=== PATIENT | male | born 1955 | race Caucasian/White ===

== ENCOUNTER 2019-11-21 12:50 | Outpatient (CLI) | payer OTHER, SELFPAY ==
--- NOTE | 2019-11-21 | MR_ITS ---
WS: [id number] MRI LEFT KNEE NONCONTRAST TECHNIQUE: Axial PD, coronal PD fat sat, coronal PD, sagittal PD, and sagittal PD fat-sat images obta ined. CLINICAL INFORMATION: WORSENING LEFT KNEE PAIN COMPARISON: None. FINDINGS: Distal quadriceps and patella tendons are intact. Small moderate joint effusion. Prepatellar and infr apatellar soft tissue edema. Mucoid degeneration ACL which appears intact. Posterior cruciate ligamen t appears intact. Lobulated synovial or meniscal cyst along the intercondylar notch measuring 1.9 x 2 .2 x 1.9 CM. This extends anteriorly to abut Hoffa's fat pad and posteriorly to abut the anterior hor n lateral meniscus. Chronic intrasubstance signal abnormality involving the medial meniscus with chronic thinning. Extens tee complex horizontal tear involving the lateral meniscus involving the anterior and posterior horns extending to the free edge. Horizontal tear extends to the articular surface anteriorly and posterio rly. Hypertrophic spurring along the joint line. Mild chondromalacia patella. Hypertrophic patella. Advanced chondromalacia involving the medial and l ateral joint compartments with joint space narrowing. Cystic degenerative change along the intercondy lar notch and tibial spines. Tiny amount of edema in the tibial plateau. MR/MR knee LT wo con* [id number] IMPRESSION: 1. Advanced degenerative narrowing medial and lateral joint compartments with chondromalacia. Small amount of edema in the underlying tibial plateau. 2. Extensive horizontal tear involving the anterior and posterior horns of the lateral meniscus extending to the free edge. 3. Lobulated meniscal cyst or synovial cyst in the intercondylar notch abuttin g the anterior horn lateral meniscus extending to Hoffa's fat pad. This measure s 1.9 x 2.2 x 1.9cm 4. Mild chondromalacia patella. 5. Small moderate joint effusion with prepatellar and infrapatellar soft tissu e edema. 6. Mucoid degeneration involving the ACL which appears intact. PCL appears int act.
== END 2019-11-21 12:51 | disposition home or self-care (01) ==
LOC: RADSHAW 12:50
PROVIDERS: PCP Internal Medicine; Visit Provider Internal Medicine
DX: M23.062 Cystic meniscus, other lateral meniscus, left knee (principal); M25.562 Pain in left knee; M94.262 Chondromalacia, left knee; M25.462 Effusion, left knee; M19.012 Primary osteoarthritis, left shoulder
CPT/HCPCS: 73721

== ENCOUNTER 2020-07-19 14:38 | Inpatient (IN) | payer OTHER, BC, SELFPAY ==
[2020-07-19] VITALS (33 sets, daily range): BP systolic 104–139; BP diastolic 64–93; PULSE 56–87; RESP 12–23; O2SAT 90–99
--- NOTE | 2020-07-19 14:00 | XACV_ITS ---
Exam Room: [facility] Ht: 183 cm Wt: 115 kg BSA: 2.46 m2 Gender: Male : 1955 Any Known Allergies: Other Exam Priority: Routine Procedure(s): Procedure Description: Diagnostic procedure Procedure Description: PCI procedure Procedure Description: Drug Eluting Coronary Stent Procedure Description: PTCA Procedure Description: Miscellaneous Procedure Description: ACT Procedure Description: Coronary Angiography Diagnostic Cath Status: Emergency Diagnostic Findings LM has mild luminal irregularities. CX of the left main artery. It gives off 3 OM branches. There is no significant stenosis noted in the left circumflex system. Ramus is a large sized vessel. It had a proximal 75% stenosis. After stenting of the ostial proximal LAD, ramus artery had plaque shift and was occluded. The RCA arises from the right coronary cusp. It gives rise to a large PDA and a medium sized PLV branch. There is no significant stenosis in the RCA. He has distal 80% stenosis. LAD arises from the left main artery. It has almost ostial to proximal 95% hazy thrombotic lesion that is the culprit for acute myocardial infarction. P roximal Left Anterior Descending Coronary Artery: Severe 95% stenosis, KEMI: 2 flow. Coronary angiography shows right dominance. PCI Status: Emergency PCI Indication: STEMI - Immediate PCI for STEMI Interventional Findings Patient was transferred from [place] emergency room for emergency coronary angiogram and intervention. We obtained access in the right femoral artery using micropuncture kit and a 6 [place] sheath was introduced. We used XB 3.5 guide catheter to engage the left main artery some difficulty because of difficult anatomy. We used BMW wire and parked it in the ramus artery. We then used a 0.014 run-through guidewire and crossed the thrombotic lesion in the ostial to proximal LAD. A 2.5 x 12 mm semi-compliant balloon was used to predilate the lesion. This was followed by placement of a 3.0x 12 mm resolute Dara drug-eluting stent. At this time we noted that the ramus artery had occluded possibly from plaque shift after deployment of the proximal LAD stent. We then tried to cross into the ramus artery using run-through wire. However this was met with difficulty. We switched to a BMW wire however it was also unsuccessful than we switched to a Fielder XT wire. This was successfully placed in the distal ramus artery. We predilated the ramus artery using a 2 oh by 12 mm semi-compliant balloon. This was followed by placement of a 3.0x15 mm drug-eluting resolute Dara stent. 9 patient's chest pain resolved and ST segments normalized. Guidewire was removed and final angiogram was performed which showed KEMI-3 flow, no residual stenosis. Guide catheter was removed and sheath was sutured in place for removal later. Aggrastat bolus was given. Proximal Left Anterior Descending Coronary Artery: 95% stenosis treated with AB TREK 2.50X12 RX BALLOON and MDT R DARA 3.0X12 NARCISO. 0% residual stenosis, KEMI: 3 flow. Ramus: 75% stenosis treated with AB MINI TREK 2.00X12 RX BALLOON and MDT R DARA 3.0X15 NARCISO. 0% residual stenosis, KEMI: 3 flow. Conclusions Acute myocardial infarction, proximal LAD is the culprit with a thrombotic 95% occlusion. There is severe coronary artery disease. Mid to distal PDA has 80% stenosis. Proximal Left Anterior Descending Coronary Artery was treated with Balloon and Drug Eluting Stent. Ramus was treated with Balloon and Drug Eluting Stent. Recommendations Admit to ICU Continue aspirin and Plavix. Statin, beta-gary and HERMAN inhibitor therapy. IV fluid administration for 12 hours. Continue Aggrastat drip for 2 hours. Echocardiogram has been ordered. Patient will need to be followed clinically, if develops chest pain in future, can consider PCI of mid to distal PDA. Medical management for now. Diagnostic RX Recommendation: PCI w/o planned CABG Pressures Phase:Rest AO : 130 mmHg / 71 mmHg ( 94 mmHg ) @ 9:33:00 AM 137 mmHg / 72 mmHg ( 97 mmHg ) @ 9:42:00 AM 140 mmHg / 77 mmHg ( 105 mmHg ) @ 10:28:00 AM Clinical Evaluation EBL: 5mL-10mL Procedural Details Procedure started. Pre-Procedure Time Out. Identified patient by full name and date of as verbalized by the patient/guarantor. Does the consent match the physician's order: N/A Emergent. Accurate & Complete Informed Consent: N/A Emergent. Inpatient/Outpatient History & Physical on Chart: N/A Emergent. If H&P is completed, is and addenduem needed: N/A Emergent; If yes, is the addendum complete: N/A Emergent. Visualize and Verify Site with Patient/Guarantor: N/A. Relevant Radiology Images available: N/A Emergent. Pre-op teaching completed and patient verbalized understanding. The risks, benefits, and alternatives of sedation and/or procedure were discussed by physician. The patient agrees to continue. 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 Chest Pain Symptom Assessment: Typical Angina Symptoms. Cardiovascular Instability: No. Correct patient, site and procedure confirmed by cath team. PERRLA. Strong, equal hand gold tooler bilaterally. Lungs clear x 5 lobes. Pt arrived via [facility]. IV Site on Arrival: 18 gauge in the left anticubital. Oxygen started at 2liters/min via nasal canula. bilateral groins was prepped with chloroprep then draped in the usual sterile fashion. Baseline sample Acquired. HR: 63 BPM. Physician arrived. Physician scrubbed in. Immediate Pre-Procedure Time Out. Correct Patient: N/A Emergent; Correct Procedure: N/A Emergent; Correct Site: N/A Emergent; Correct Patient Position: N/A Emergent; Correct Supplies: N/A Emergent; Dried Flammable Prep: N/A Emergent; Blood Products Available: N/A Emergent;. Lidocaine 1% infiltrated to the right groin. Arterial access obtained with micropuncture set. Inventory is CRD 6 FR XB 3.5 GUIDE. 6 finnish XB 3.5 guide catheter was inserted over the wire. Inventory is AB BMW Guide Wire .014 190cm. Guide catheter out. Inventory is CRD 6FR XB 3 GUIDE. 6 finnish XB 3 guide catheter was inserted over the wire. Pt arrived with Nitro running at 10 mcg. Stopped at this time. Pt has difficult anatomy. Physician having difficult time seating guide catheter. BMW guidewire was advanced through the guide catheter to lesion in the Ramus. ACT drawn. Results 201 seconds. Therapeutic limits - pre-heparin administration 90-150 seconds and monitoring heparin during a vascular procedure >250 seconds. Inventory is TR 180cm Runthrough NS extra floppy 0.014 wire. Runthrough guidewire was advanced through the guide catheter to lesion in the prox LAD. Difficulty placing Runthrough wire. Wire taken out to reshape, then reinserted. Runthrough wire seated in LAD. Inflation number : 1 A AB TREK 2.50X12 RX BALLOON was prepped and advanced across the Prox LAD , then inflated to 10 JAH for 0:25 seconds. Inflation number: 2 The AB TREK 2.50X12 RX BALLOON was reinflated across the Prox LAD, to 8 JAH for 0:16 seconds. Balloon out. Inflation Number : 3 A ALEX Kuhn DARA 3.0X12 NARCISO -Lot Number# [id number] exp date 03/24/2022 was prepped and advanced across the Prox LAD. The stent was deployed at 12 JAH for 0:20 seconds. Difficulty again positioning wire. Runthrough wire removed. New Runthrough wire inserted. BMW wire out. Runthrough guidewire was advanced through the guide catheter to lesion in the Ramus. Wire out. FIELDER XT inserted through guide catheter. Fielder wire out to be reshaped. Called Dr Novoa to come assist. Fielder wire inserted. Dr Novoa arrived. Guideliner inserted. Guideliner out over wire. Inflation number : 1 A AB MINI TREK 2.00X12 RX BALLOON was prepped and advanced across the Ramus , then inflated to 6 JAH for 0:22 seconds. Inflation number: 2 The AB MINI TREK 2.00X12 RX BALLOON was reinflated across the Ramus, to 8 JAH for 0:15 seconds. Called to anesthesia to be on standby for this procedure. Inflation Number : 3 A ALEX Kuhn DARA 3.0X15 NARCISO -Lot Number# [id number] exp date 02/16/2022 was prepped and advanced across the Ramus. The stent was deployed at 12 JAH for 0:21 seconds. Results checked. A 6 finnish JR4 catheter in over wire. Catheter out. Physician scrubbed out. ACT drawn. Results 216 seconds. Therapeutic limits - pre-heparin administration 90-150 seconds and monitoring heparin during a vascular procedure >250 seconds. A Suture was successful obtaining hemostatsis at the Right Femoral artery insertion site. Sheath(s) sutured into position with 2-0 silk and sterile 4x4's and Op-site applied over the site. No oozing or signs and symptoms of hematoma noted. Arterial sheath flushed and connected to tranducer and pressure bag with heparinized saline. Post Procedure: Pulses reassessed and unchanged. PERRLA. Strong, equal hand gold tooler bilaterally. No VTE prophylaxis required. Medication's Wasted: Heparin = 1000 units. Medication's Wasted: Other = versed 1 mg. Total IV fluids: 103 mL. PCI Indication: STEMI. Complications: none. Estimated blood loss: 5mL-10mL. Procedure completed. Patient transferred by bed to 1st floor. Vital chart was stopped. Site: Right Femoral artery Sheath Size: 6 Fr Hemostasis Method: Suture Hemostasis Success: Successful Procedure Medications Start: 2:29 PM Stop: 2:29 PM Medication: Heparin Amount: 7000 units Route: I.V. Start: 2:29 PM Stop: 2:29 PM Medication: Versed Amount: 1 mg Route: I.V. Start: 2:30 PM Stop: 2:30 PM Medication: Fentanyl Amount: 50 mcg Route: I.V. Start: 2:45 PM Stop: 2:45 PM Medication: Versed Amount: 1 mg Route: I.V. Start: 2:51 PM Stop: 2:51 PM Medication: Heparin Amount: 3000 units Route: I.V. Start: 2:58 PM Stop: 2:58 PM Medication: Versed Amount: 1 mg Route: I.V. Start: 2:58 PM Stop: 2:58 PM Medication: Fentanyl Amount: 50 mcg Route: I.V. Start: 3:01 PM Stop: 3:01 PM Medication: Nitrogylcerin Amount: 10 mcg/min Route: I.V. drip Start: 3:04 PM Stop: 3:04 PM Medication: Fentanyl Amount: 50 mcg Route: I.V. Start: 3:08 PM Stop: 3:08 PM Medication: Morphine Amount: 2 mg Route: I.V. Start: 3:13 PM Stop: 3:13 PM Medication: Versed Amount: 1 mg Route: I.V. Start: 3:13 PM Stop: 3:13 PM Medication: Heparin Amount: 2000 units Route: I.V. Start: 3:17 PM Stop: 3:17 PM Medication: Morphine Amount: 2 mg Route: I.V. Start: 3:19 PM Stop: 3:19 PM Medication: Versed Amount: 1 mg Route: I.V. Start: 3:24 PM Stop: 3:24 PM Medication: Versed Amount: 1 mg Route: I.V. Start: 3:30 PM Stop: 3:30 PM Medication: Fentanyl Amount: 50 mcg Route: I.V. Start: 3:34 PM Stop: 3:34 PM Medication: Versed Amount: 1 mg Route: I.V. Start: 3:38 PM Stop: 3:38 PM Medication: Heparin Amount: 1000 units Route: I.V. Start: 3:41 PM Stop: 3:41 PM Medication: Fentanyl Amount: 50 mcg Route: I.V. Start: 3:45 PM Stop: 3:45 PM Medication: Nitrogylcerin Amount: 10 mcg/min Route: I.A. Start: 3:49 PM Stop: 3:49 PM Medication: Aggrastat 12.5 mg/250 mL Amount: 57.5 ml Route: I.V. bolus Start: 3:49 PM Stop: 3:49 PM Medication: Aggrastat 12.5 mg/250 mL Amount: 20.7 ml/hr Route: I.V. marita Carr, the attending physician, have reviewed and verified all procedure medications. Yes, all medications given per verbal order Report Signatures Finalized by:Jose R Iraheta MD on 07/20/2020 6:32:41 PM
--- NOTE | 2020-07-19 16:30 | PC.NURSE ---
Patient to CSU from slab puller at 1620. 2 nurse verification of right groin, asymptomatic. Neurovascular assessment WNL. VSS, see physical assessment. No complaints at this time. Nurse to continue to monitor.
[2020-07-19] MEDS: sodium chloride 0.9% 1,000 ML 75 ML IV (16:39)
--- NOTE | 2020-07-19 16:45 | XR_ITS ---
WS: [id number] EXAM: AP CHEST: PORTABLE UPRIGHT DATE OF EXAM: 07/19/2020, 1723 hour COMPARISON: NONE HISTORY: Patient is 65 years old with recent STEMI. FINDINGS: The cardiac silhouette is normal in size. The mediastinal contours are normal. The pulmonary vas cularity is normal. Slight chronic lung changes seen. Lungs are otherwise clear of consolidative inf iltrate. There is no effusion or pneumothorax. Postsurgical changes seen lower cervical spine. XR/XR chest 1V [id number] IMPRESSION: No acute pulmonary disease.
--- NOTE | 2020-07-19 17:00 | P.HP_ITS ---
Providers/Chief Complaint Admitting Physician: Jose R Iraheta M.D Primary Care Provider: Arsenio Canales Chief Complaint: STEMI History of Present Illness Fidel Moreno is a 65 year old male with past medical history of hypertension, diabetes, pulmonary embolism and recent knee replacement presented to the [facility] ER at [place] with acute chest pain. According to the mechelle ent he started having chest pain at around 10:50 AM when he was cutting log outside. The pain improved on rest but then reappeared around 1215 to 12:30 PM today. At this time he asked his to take him to the ER. EKG done at the ER showed ST elevations in anterior leads. Given his acute presentation and ST elevations in the anterior leads he was transferred to our hospital for emergent cath. Patient had hazy proximal LAD 80% stenosis that was the culprit for his ST elevation KS. We treated it with drug-eluting stent x1. We lost flow to the ramus after putting a stent in LAD. A Fielder XT wire was used to cross into the ramus artery and drug-eluting stent was deployed in the ramus as well. He has residual stenosis in the PDA. Patient had KEMI-3 flow in all vessels at the end of the procedure and was chest pain-free. At the end of procedure his urine was red color. According to the patient he has history of renal stones and has noted that before but not to this degree. Review of Systems General: Reports: 10 or more systems reviewed and unremarkable except in HPI and below Medications/Allergies Home Medications Medication Instructions Recorded Confirmed Last Taken Type alprazolam [Xanax] 0.25 mg PO BEDTIME 07/19/20 07/19/20 07/18/20 22:00 History ascorbic acid (vitamin C) [Vitamin 500 mg PO DAILY 07/19/20 07/19/20 07/19/20 07:00 History C] aspirin 81 mg PO QPM 07/19/20 07/19/20 07/18/20 22:00 History candesartan-hydrochlorothiazid 0.5 tab PO DAILY 07/19/20 07/19/20 07/19/20 07:00 History cholecalciferol (vitamin D3) 50 mcg PO DAILY 07/19/20 07/19/20 07/19/20 07:00 History [Vitamin D3] fenofibric acid (choline) 135 mg PO DAILY 07/19/20 07/19/20 07/19/20 07:00 History iron 07/19/20 07/19/20 07:00 History meloxicam 15 mg PO DAILY 07/19/20 07/19/20 07/19/20 07:00 History metformin 500 mg PO DAILY 07/19/20 07/19/20 07/19/20 07:00 History omega-3 acid ethyl esters 4 cap PO DAILY 07/19/20 07/19/20 07/19/20 07:00 History omeprazole 40 mg PO DAILY 07/19/20 07/19/20 07/19/20 07:00 History Allergies Allergy/AdvReac Type Severity Reaction Status Date / Time atorvastatin [From Lipitor] AdvReac ADR-Cramping Verified 07/19/20 17:17 of the Muscles cephalexin [From Keflex] AdvReac ADR-Vomitin Verified 07/19/20 17:17 g clindamycin AdvReac ADR-Gastrointestinal Verified 07/19/20 17:17 Upset pantoprazole [From Protonix] AdvReac Unknown Verified 07/19/20 17:17 vitamin b12 Allergy ALGY-Swell Uncoded 07/19/20 17:17 Lip/Tongue/Throat PFSH Acute PFSH: Medical History (Updated 07/19/20 @ 22:22 by Jose R Iraheta M.D) Aftercare following knee joint replacement surgery Family History (Updated 07/19/20 @ 17:12 by Jose R Iraheta M.D) Father CAD (coronary artery disease) Vitals/I&O/Wt Weight last 48 hrs Weight 260 lb 14.4 oz Physical Exam Narrative: EXAM NARRATIVE: GENERAL: Patient is alert, awake and oriented x3. [] NECK: No jugular vein distension. [] HEENT: No cyanosis. No icterus. No pallor. [] HEART: Regular S1 and S2. No murmur, rub or gallop. [] LUNGS: Clear to auscultate bilaterally. [] ABDOMEN: Soft, nontender and nondistended. Positive bowel sounds. No guarding, rebound or tenderness. [] CENTRAL NERVOUS SYSTEM: Grossly nonfocal. [] EXTREMITIES: Lower extremities with no edema bilaterally. Pulses palpable in the lower extremities, both dorsalis pedis and posterior tibial. [] Data : 07/19/20 17:59 07/19/20 17:59 A&P Assessment and plan (1) ST elevation KS (STEMI): Status: Acute (2) Hypertension: Status: Acute (3) Diabetes: Status: Acute (4) History of pulmonary embolism: Status: Acute Admit to cardiac stepdown Continue aspirin and Plavix. Aggrastat bolus given in the Transcription. Continue for the next 2 hours. Patient has developed hematuria. Will need to assess CBC and follow if hematuria resolves. Echocardiogram has been ordered. Beta-gary ordered. Patient had severe muscle pains with atorvastatin. We will initiate Pravastatin 20mg daily Initiate lisinopril once renal function is known. Attestations Medical Necessity Statement*: Care expected to cross [address] Patient had acute ST elevation myocardial infarction Coding Level of Care Code Acute Lay Out Drafter for Emilia Ni Diagnoses ST elevation KS (STEMI) I21.3 Hypertension I10 Diabetes E11.9 History of pulmonary embolism Z86.711
--- NOTE | 2020-07-19 17:45 | ECG_ITS ---
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 Measurements Intervals [place] Rate: 64 P: 57 CT: 157 QRS: 10 QRSD: 99 T: 36 QT: 445 QTc: 462 Interpretive Statements SINUS RHYTHM WITH FREQUENT VENTRICULAR PREMATURE COMPLEXES ABNORMAL RHYTHM ECG No previous ECG available for comparison Electronically Signed On 07-19-2020 20:53:14 CDT by Bebe Novoa M.D. [email or web address] behavioral [email or web address] [email or web address] DJ/store/[id number]
--- NOTE | 2020-07-19 18:00 | PC.NURSE ---
Evening medications clarified with Dr. Iraheta. Telephone order to hold metoprolol as patient HR is 50s-60s. Telephone order to notify physician about giving if HR or BP increases. RBVO. Physician also notified that patient reports a severe adverse reaction to Lipitor. Physician gave telephone order to not administer PM dose. Physician to prescribe new medication. RBVO, nurse to continue to monitor.
--- NOTE | 2020-07-19 18:24 | PC.NURSE ---
Aggristat gtt stopped at 1728.
[2020-07-19 18:52] LABS: Basophils % 0.2 %; Eosinophils % 0.4 %; Hematocrit 44.1 % (42.0-52.0); Hemoglobin 14.1 g/dL (11.7-16.6); Lymphocytes # 1.4 10^3/uL (0.8-4.8); Lymphocytes % 13.4 %; Mean Corpuscular Hemoglobin 30.7 pg (28.0-34.0); Mean Corpuscular Volume 96.1 fL (80-94); Mean Platelet Volume 10.9 fL (7.4-10.4); Monocytes # 0.3 10^3/uL (0.2-0.9); Monocytes % 2.9 %; Neutrophils # 8.44 10^3/uL (1.8-7.7); Neutrophils % 82.9 %; Nucleated Red Blood Cells % 0 %; Platelet Count 288 10^3/cmm (130-400); Red Blood Count 4.59 10^6/uL (4.1-5.3); Red Cell Distribution Width 13.8 % (12.1-15.1); White Blood Count 10.2 10^3/uL (4.0-10.0)
[2020-07-19 19:15] LABS: Anion Gap 20.2 (5-19); Blood Urea Nitrogen 20 mg/dL (8-23); Calcium 8.9 mg/dL (8.5-10.5); Carbon Dioxide 21 mmol/L (22-29); Chloride 100 mmol/L (98-107); Chol HDL Ratio 3.32 mg/dL (1.0-5.00); Cholesterol 196 mg/dL (0-200); Glomerular Filtration Rate 75.5 mL/min (90-130); Glucose 110 mg/dL (65-115); HDL Cholesterol 59 mg/dL (60-100); LDL Cholesterol Calculated 120 mg/dL (50-129); LDL HDL Ratio 2.03 RATIO (0.00-3.22); Osmolality Calculated 281 mOsm/kg (285-295); Potassium 4.2 mmol/L (3.5-5.1); Sodium 137 mmol/L (136-145); Triglycerides 86 mg/dL (0-150)
[2020-07-19 19:25] LABS: Partial Thromboplastin Time 113.1 SECONDS (23.9-36.7)
--- NOTE | 2020-07-19 19:27 | PC.NURSE ---
PTT result 113.1. Dr. Iraheta notified. Physician gave telephone order to recheck lab at 2100, pull sheath if ptt <45. RBOVO.
[2020-07-19 19:36] LABS: Troponin T (5th) Once 1037 ng/L (0-15)
--- NOTE | 2020-07-19 20:40 | ECG_ITS ---
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 Measurements Intervals [place] Rate: 64 P: MI: -1 QRS: 151 QRSD: 165 T: 38 QT: 460 QTc: 478 Interpretive Statements SINUS bradycardia with AIVR Compared to ECG 07/19/2020 18:31:53 AIVR now present Ventricular premature complex(es) no longer present Electronically Signed On 07-20-2020 14:54:40 CDT by Aliza Seaman M.D. [email or web address] memorial hospitalPipelineDBadena [email or web address] medical [email or web address]/store/NU/[id number] f
--- NOTE | 2020-07-19 20:54 | PC.NURSE ---
Messaged Dr. Seaman reguarding patients EKG. Patient Denied chest pain and vitals stable. Orders to continue to montior patient.
[2020-07-19 21:25] LABS: Partial Thromboplastin Time 27.3 SECONDS (23.9-36.7)
--- NOTE | 2020-07-19 22:07 | PC.NURSE ---
Sheath removed from right groin at 2145. Manual pressure held for 20 minutes. Patient tolerated well. No bleeding or hematoma noted at this time. Dressing applied to right groin. Vital signs remained stable throughout procedure. Patient has been educated on bedrest time and activity restrictions and verbalized understanding. Will continue to monitor.
--- NOTE | 2020-07-19 23:05 | PC.NURSE ---
Called Dr. Zavala regarding patients metoprolol. Patients heart rate 55 to 60 updated about intermittent heart block that was discussed with Dr. Seaman and blood pressure. Orders to hold patients night dose of metoprolol PO.
[2020-07-20] VITALS (21 sets, daily range): BP systolic 120–157; BP diastolic 74–97; PULSE 50–86; RESP 12–21; TEMP 36.3–36.9; O2SAT 94–99
[2020-07-20 04:43] LABS: Basophils % 0.5 %; Eosinophils # 0.2 10^3/uL (0.0-0.8); Eosinophils % 2.4 %; Hematocrit 39.5 % (42.0-52.0); Hemoglobin 12.8 g/dL (11.7-16.6); Lymphocytes # 1.5 10^3/uL (0.8-4.8); Lymphocytes % 19.2 %; Mean Corpuscular HGB Conc 32.4 g/dL (30.0-36.0); Mean Corpuscular Hemoglobin 30.5 pg (28.0-34.0); Mean Platelet Volume 10.9 fL (7.4-10.4); Monocytes # 0.6 10^3/uL (0.2-0.9); Neutrophils # 5.65 10^3/uL (1.8-7.7); Neutrophils % 70.5 %; Nucleated Red Blood Cells % 0 %; Platelet Count 258 10^3/cmm (130-400)
[2020-07-20 05:07] LABS: Anion Gap 14.6 (5-19); Blood Urea Nitrogen 19 mg/dL (8-23); Calcium 8.3 mg/dL (8.5-10.5); Carbon Dioxide 23 mmol/L (22-29); Chloride 102 mmol/L (98-107); Glomerular Filtration Rate 113.9 mL/min (90-130); Glucose 122 mg/dL (65-115); Osmolality Calculated 280 mOsm/kg (285-295); Potassium 3.6 mmol/L (3.5-5.1); Sodium 136 mmol/L (136-145)
--- NOTE | 2020-07-20 08:12 | PC.NURSE ---
pt resting in bed. has not been up since sheath removal, requested to use the rest room. pt ambulated to bathroom with no issues. pt returned to bed. dressing c/d/i. no other needs identified at this time. call light within reach. will continue to monitor.
--- NOTE | 2020-07-20 08:37 | P.PN_ITS ---
Subjective Subjective: Interval history: Patient has been doing well. Did not have any chest pain episodes overnight. His hematuria has resolved. Right groin access site has some soreness but otherwise no hematoma. He mentioned that with atorvastatin in the past he used to have muscle cramps. Vitals/I&O/Wt Last Vital Signs Temp 97.3 F L 07/20/20 07:55 Pulse 61 07/20/20 07:55 Resp 17 07/20/20 07:55 BP 138/79 07/20/20 07:55 Pulse Ox 96 07/20/20 07:55 07/19/20 07/20/20 07/20/20 22:59 06:59 14:59 Intake Total 564 / 564 200 / 764 240 / 240 Output Total 750 / 750 600 / 1350 Balance -186 / -186 -400 / -586 240 / 240 Weight last 48 hrs Weight 260 lb 14.4 oz Physical Exam Narrative: EXAM NARRATIVE: GENERAL: Patient is alert, awake and oriented x3. [] NECK: No jugular vein distension. [] HEENT: No cyanosis. No icterus. No pallor. [] HEART: Regular S1 and S2. No murmur, rub or gallop. [] LUNGS: Clear to auscultate bilaterally. [] ABDOMEN: Soft, nontender and nondistended. Positive bowel sounds. No guarding, rebound or tenderness. [] CENTRAL NERVOUS SYSTEM: Grossly nonfocal. [] EXTREMITIES: Lower extremities with no significant edema bilaterally. Pulses palpable in the lower extremities, both dorsalis pedis and posterior tibial. [] Data : 07/20/20 03:57 07/20/20 03:57 A&P Assessment and plan (1) ST elevation NE (STEMI): Status: Acute (2) Hypertension: Status: Acute (3) Diabetes: Status: Acute (4) History of pulmonary embolism: Status: Acute Continue current medications with aspirin, Plavix, metoprolol and lis inopril. Because of prior history of significant cramping with atorvastatin in the past, patient is reluctant to use at regular dose. We will start Lipitor at 10 mg daily and see how patient tolerates it. Echo to be performed this morning. Patient has been having frequent PVCs likely secondary to revascularization post STEMI. We will initiate beta-gary this a.m. We will continue to monitor labs. Attestations Medical Necessity Statement*: Care expected to cross 2 midnights. Patient post acute myocardial infarction. Coding Level of Care Code Acute Customer Solutions Specialist for Emilia Ni Diagnoses ST elevation NE (STEMI) I21.3 Hypertension I10 Diabetes E11.9 History of pulmonary embolism Z86.711
[2020-07-20] MEDS: metoprolol tartrate 25 mg Tablet 12.5 MG PO ×2 (09:01→17:36)
[2020-07-20] MEDS: lisinopril 10 mg Tablet PO (09:01)
[2020-07-20] MEDS: aspirin 81 mg EC Tablet PO (09:01)
[2020-07-20] MEDS: clopidogrel 75 mg Tablet PO (09:01)
--- NOTE | 2020-07-20 14:36 | PC.NURSE ---
pt resting in bed. dressing is c/d/i. call light within reach. no needs identified at this time. will continue to monitor.
--- NOTE | 2020-07-20 16:50 | USCV_ITS ---
Fidel Moreno Age: 65 Gender: M : 1955 Exam Date: 07/20/2020 05:41 Ordering Phys: Jose R Iraheta M.D ([email or web address]) Technologist: Angelina Torres [place] [facility] [facility] [place]: POST STEMI WITH STENT BP: 157 / 91 HR: 54 Rhythm: Sinus Technical Quality: Adequate MEASUREMENTS (Male / Female) Normal Values 2D ECHO LV Diastolic Diameter PLAX 5.2 cm 4.2 - 5.9 / 3.9 - 5.3 cm LV Systolic Diameter PLAX 4.1 cm LV Chamber Size 3.7 cm IVS Diastolic Thickness 1.5 cm 0.6 - 1.0 / 0.6 - 0.9 cm IVS Systolic Thickness 1.2 cm LVPW Diastolic Thickness 1.4 cm 0.6 - 1.0 / 0.6 - 0.9 cm LVPW Systolic Thickness 2.0 cm RV Chamber Size 3.4 cm LVOT Diameter 2.0 cm LV Ejection Fraction 2D Teich 41.3 % LV Ejection Fraction MOD 2C 37.7 % LV Ejection Fraction 2C AL 37.2 % LA Diameter 3.9 cm LA Width 3.0 cm LA Height 5.3 cm RA Width 4.0 cm RA Height 4.6 cm Aorta at Sinotubular Diameter 4.0 cm M-MODE LV Diastolic Diameter MM 5.6 cm 4.2 - 5.9 / 3.9 - 5.3 cm LV Systolic Diameter MM 4.3 cm LV Ejection Fraction MM Teich 44.7 % IVS Diastolic Thickness MM 0.7 cm 0.6 - 1.0 / 0.6 - 0.9 cm IVS Systolic Thickness MM 0.8 cm LVPW Diastolic Thickness MM 1.4 cm 0.6 - 1.0 / 0.6 - 0.9 cm LVPW Systolic Thickness MM 1.7 cm RV Diastolic Diameter MM 1.0 cm Aortic Annulus Diameter 3.3 cm LA Ao Ratio MM 1.2 DOPPLER AV Peak Velocity 170.0 cm/s LVOT Peak Velocity 81.0 cm/s AV Area Cont Eq vti 1.8 cm squared AV Area Cont Eq pk 1.6 cm squared MV Area PHT 5.0 cm squared Mitral E to A Ratio 1.5 MV E' Velocity 7.0 cm/s Mitral E to MV E' Ratio 12.9 Mitral E to LV E' Lateral Ratio 11.3 Mitral E to LV E' Septal Ratio 15.1 TR Peak Velocity 207.6 cm/s TR Peak Gradient 17.2 mmHg TR Mean Velocity 159.4 cm/s TR Mean Gradient 10.8 mmHg TR Velocity Time Integral 55.8 cm TV Peak E Velocity 86.0 cm/s Right Atrial Pressure 8.0 mmHg Pulmonary Artery Systolic Pressu 25.2 mmHg PV Peak Velocity 71.0 cm/s RV Acceleration Time 0.1 s RV Ejection Time 0.4 s RV AcT/ET 0.4 FINDINGS Left Ventricle Normal left ventricular size and wall thickness. LV systolic function is moderately reduced with LVEF of 35 to 40 %. Basal to apical anteroseptal wall is akinetic, apical is severely hypokinetic. There is mild hypokinesis of the anterior wall. Grade 2 diastolic dysfunction with elevated filling pressures. Right Ventricle The right ventricle is normal in size and function. Right Atrium The right atrium is normal in size. Left Atrium The left atrium is normal in size. Mitral Valve Structurally normal mitral valve without significant stenosis or prolapse. There is no mitral regurgitation. Aortic Valve Structurally normal aortic valve without significant sclerosis or stenosis. There is no aortic regurgitation. Tricuspid Valve Structurally normal tricuspid valve without significant stenosis or regurgitation. Sufficient TR jet to calculate RVSP. RA pressure is 5 to 10 mmHg. Pulmonic Valve Structurally normal pulmonic valve without significant stenosis. There is no pulmonic regurgitation. Pericardium Normal pericardium without effusion. Aorta Normal ascending aorta dimension. CONCLUSIONS LV systolic function is moderately reduced with LVEF of 35 to 40% with above-mentioned wall motion abnormalities Grade 2 diastolic dysfunction is noted. Jose R Iraheta MD (Electronically Signed) Final Date: 20 July 2020 17:30 S
--- NOTE | 2020-07-20 17:50 | PC.NURSE ---
pt had an uneventful shift thus far. pt resting in bed with visitor at bedside. dressing c/d/i. call light within reach. will continue to monitor.
--- NOTE | 2020-07-20 19:19 | PC.NURSE ---
Patient resting in bed. Patient R groin is clean dry and intact. NO hematoma. Patient is alert and oriented. Denies any pain. Will continue to monitor.
[2020-07-20] MEDS: atorvastatin 40 mg Tablet 10 MG PO (20:20)
[2020-07-21 00:24] VITALS: BP 124/81; PULSE 68; RESP 15; TEMP 36.9; O2SAT 96
[2020-07-21 03:47] VITALS: BP 122/79; PULSE 65; RESP 17; TEMP 36.7; O2SAT 99
[2020-07-21] MEDS: acetaminophen 325 mg Tablet 650 MG PO (04:01)
--- NOTE | 2020-07-21 06:11 | PC.NURSE ---
End of shift: Patient had a uneventful shift. Patient ambulates to the bathroom with no assistance. Patient has had no complaints of chest pain. Patient dressing clean dry and intact. Will continue to [facility].
[2020-07-21 06:48] VITALS: BP 110/74; PULSE 61; RESP 13; TEMP 36.6; O2SAT 97
--- NOTE | 2020-07-21 07:30 | PC.NURSE ---
pt resting in bed. assessment completed. call light within reach. pt denied needing anything at this time. will continue to monitor.
--- NOTE | 2020-07-21 08:43 | P.DS_ITS ---
Discharge Providers Date of Admission: 07/19/20 14:38 Date of Discharge: July 21, 2020 Attending Provider at Admission: Jose R Iraheta M.D Attending Provider at Discharge: Jose R Iraheta M.D Primary Care Provider: Arsenio Canales Diagnoses at Discharge Discharge Diagnosis (1) ST elevation VA (STEMI): Status: Resolved Problem details: s/p successful PCI of ostial LAD and Proximal Ramus (2) Hypertension: Status: Acute (3) Diabetes: Status: Acute (4) History of pulmonary embolism: Status: Acute (5) Hematuria: Status: Acute Problem details: Resolved after stopping IV anticoagulation and IV antiplatelets Reason for Visit Reason for Visit: STEMI Hospital Course Hospital Course: 65-year-old man with past medical history of hypertension, diabetes, pulmonary embolism initially presented to [facility] room with 2 to 3 hours of chest pain. An EKG performed in the emergency room showed anterior leads ST elevations. Patient was transferred to our hospital by air [facility] for emergent catheterization and intervention. Patient was directly taken to the [facility]. He had successful PCI of ostial to proximal LAD (culprit for ST elevation VA) and proximal ramus artery. Patient's chest pain and ST changes resolved. He was put on aspirin, Plavix, metoprolol, lisinopril. Patient developed transient hematuria right after intervention was performed. This resolved once IV heparin and IV Aggrastat were stopped. He had a history of muscle cramps with statin therapy in the remote past. We have initiated low- dose statin therapy and will uptitrate if he tolerates it. Patient stayed stable during his hospital course. His echocardiogram revealed a moderately reduced ejection fraction of 35 to 40%. Patient was discharged in a stable condition. He will follow with our office. Physical Exam Narrative: EXAM NARRATIVE: GENERAL: Patient is alert, awake and oriented x3. [] NECK: No jugular vein distension. [] HEENT: No cyanosis. No icterus. No pallor. [] HEART: Regular S1 and S2. No murmur, rub or gallop. [] LUNGS: Clear to auscultate bilaterally. [] ABDOMEN: Soft, nontender and nondistended. Positive bowel sounds. No guarding, rebound or tenderness. [] CENTRAL NERVOUS SYSTEM: Grossly nonfocal. [] EXTREMITIES: Lower extremities with no edema bilaterally. Pulses palpable in the lower extremities, both dorsalis pedis and posterior tibial. [] Discharge Data Data Completed and Pending: Completed Studies During Hospitalization Category Date Time Status [facility]ING [facility]ULER request for service Routin e Exams 07/19/20 14:00 Completed XR chest 1V [id number] Routine Exams 07/19/20 16:45 Completed CV echo complete* [id number] Routine Ultrasound 07/20/20 16:50 Completed Vitals: Last Vital Signs Temp 97.8 F 07/21/20 06:48 Pulse 61 07/21/20 06:48 Resp 13 07/21/20 06:48 BP 110/74 07/21/20 06:48 Pulse Ox 97 07/21/20 06:48 Discharge Plan Discharge Patient Disposition: Home Condition: Stable Prescriptions: New clopidogrel 75 mg Tablet 75 mg PO DAILY Qty: 60 RF: 6 aspirin 81 mg Tablet,Delayed Release (Dr/Ec) 81 mg PO DAILY Qty: 60 RF: 3 lisinopril 10 mg Tablet 10 mg PO DAILY Qty: 60 RF: 3 nitroglycerin 0.4 mg Tablet, Sublingual 0.4 mg sublingual Q5M PRN (Reason: Chest Pain) Qty: 30 RF: 0 metoprolol tartrate 25 mg Tablet 25 mg PO BID Qty: 120 RF: 6 atorvastatin 10 mg tablet 10 mg PO DAILY Qty: 30 RF: 6 Continued meloxicam 15 mg Tablet 15 mg PO DAILY RF: 0 omeprazole 40 mg Capsule,Delayed Release(Dr/Ec) 40 mg PO DAILY RF: 0 alprazolam [Xanax] 0.25 mg Tablet 0.25 mg PO BEDTIME PRN (Reason: unknown) RF: 0 ascorbic acid (vitamin C) [Vitamin C] 500 mg Tablet 500 mg PO DAILY RF: 0 omega-3 acid ethyl esters 1 gram Capsule 4 cap PO DAILY RF: 0 cholecalciferol (vitamin D3) [Vitamin D3] 50 mcg (2,000 unit) Tablet 50 mcg PO DAILY RF: 0 metformin 500 mg tablet 500 mg PO DAILY RF: 0 Tylenol Extra Strength 500 mg Tablet 1,000 mg PO PRN RF: 0 Centrum Men 8 mg iron- 200 mcg-600 mcg Tablet 1 tab PO DAILY RF: 0 Slow Release Iron 1 tab PO DAILY RF: 0 Discontinued fenofibric acid (choline) 135 mg Capsule,Delayed Release(Dr/Ec) 135 mg PO DAILY RF: 0 aspirin 81 mg Tablet,Delayed Release (Dr/Ec) 81 mg PO DAILY RF: 0 candesartan-hydrochlorothiazid 32-25 mg tablet See Rx Instructions .ROUTE .COMPLEX RF: 0 Discharge Orders: Discharge Order (Routine); Ordered 07/21/20 Ordered By: Jose R Iraheta Referrals: Jose R Iraheta M.D [Physician] - (You have an follow-up appointment with Dr. Iraheta on , with check-in at 1:00p.m. If you have any questions or need to reschedule. Please call ) Katerina Torres FNP [Nurse Practitioner] - (You have an follow-up appointment with Katerina Torres on Sunday, with check-in at 10:45a.m. If you have any questions or need to reschedule. Please call ) Discharge Diet: Cardiac Discharge Activity: Increase activity as tolerated Patient Instructions: Metoprolol (By mouth), Nitroglycerin (By mouth), Lisinopril (By mouth), Aspirin (By mouth), Atorvastatin (By mouth), Clopidogrel (By mouth), Myocardial Infarction (DC), Left Heart Catheterization (DC), Coronary Angioplasty (DC), Hypertension (DC), Post Angiogram Home Care Instructions Activity Restrictions/Additional Instructions: Please do not lift more than 5 pounds of weight for the next 5 days Discharge Date/Time: 07/21/20 10:59 Discharge Attestations Time Spent in Discharge Care*: greater than 30 min Specific Discharge Activities: Specific discharge activities: educating patient and documenting/other paperwork Status at Discharge: Cognitive status at discharge: cognitively intact , Behavioral status at discharge: cooperative , Functional status at discharge: independent ambulation Overall status at discharge: patient is back to baseline Quality Metrics Clinical Quality Measures During this hospital stay, did patient experience: None Coding Level of Care Code Acute Technical Applications Specialist for Emilia Ni Diagnoses ST elevation VA (STEMI) I21.3 Hypertension I10 Diabetes E11.9 History of pulmonary embolism Z86.711 Hematuria R31.9
[2020-07-21] MEDS: metoprolol tartrate 25 mg Tablet PO (08:59)
[2020-07-21] MEDS: aspirin 81 mg EC Tablet PO (08:59)
[2020-07-21] MEDS: lisinopril 10 mg Tablet PO (08:59)
[2020-07-21] MEDS: clopidogrel 75 mg Tablet PO (08:59)
--- NOTE | 2020-07-21 09:00 | PC.NURSE ---
in room. discussed discharge with pt. pt told nurse he wanted [facility] as his pharmacy and that his was on her way with his clothing. pt will call nurses station when is here with clothing so we can get them for him and assist if he needs help. call light in reach. will continue to monitor.
[2020-07-21 09:16] VITALS: BP 110/74; PULSE 61; RESP 13; TEMP 36.6; O2SAT 97
== END 2020-07-21 10:59 | disposition home or self-care (01) | DRG 247 ==
PROVIDERS: Admitting Provider Internal Medicine; PCP Internal Medicine; Visit Provider Internal Medicine
PROC: 027135Z Dilation of Coronary Artery, Two Arteries with Two Drug-eluting Intraluminal Devices, Percutaneous Approach (ICD-10-PCS; principal; 2020-07-19 14:00)
PROC: 027135Z Dilation of Coronary Artery, Two Arteries with Two Drug-eluting Intraluminal Devices, Percutaneous Approach (ICD-10-PCS; 2020-07-19 14:00)
DX: I21.09 ST elevation (STEMI) myocardial infarction involving other coronary artery of anterior wall (principal); E11.9 Type 2 diabetes mellitus without complications; R31.9 Hematuria, unspecified; I10 Essential (primary) hypertension; Z86.711 Personal history of pulmonary embolism; Z79.01 Long term (current) use of anticoagulants; Z79.84 Long term (current) use of oral hypoglycemic drugs; Z79.82 Long term (current) use of aspirin
CPT/HCPCS: 12345; 36415; 71045; 80048; 80061; 84484; 85025; 85347; 85730; 93005; 93306; 93454; 94660; C1725; C1769; C1874; C1887; C1894; C9601; C9606; J1644; J2250; J2270; J3010; J3246; J3490; J7030; Q9967

== ENCOUNTER → 2020-07-26 09:29 | Outpatient (BNVA) | payer OTHER, BC, SELFPAY | PROVIDERS: PCP Internal Medicine; Visit Provider Nurse Practitioner Family | DX: I25.10 Atherosclerotic heart disease of native coronary artery without angina pectoris (principal) | CPT/HCPCS: 80048 ==

== ENCOUNTER 2020-12-28 13:10 | Outpatient (CLI) | payer OTHER, SELFPAY ==
--- NOTE | 2020-12-28 13:20 | USCV_ITS ---
Tiffanie Fidel Age: 65 Gender: M : 1955 Exam Date: 12/28/2020 13:40 Ordering Phys: Jose R Iraheta M.D ([email or web address]) Technologist: Angelina Torres [place]am [place] [facility] [place] Indication: RE CHECK EF BP: 141 / 80 HR: 57 Rhythm: Sinus Technical Quality: Adequate MEASUREMENTS (Male / Female) Normal Values 2D ECHO LV Diastolic Diameter PLAX 5.3 cm 4.2 - 5.9 / 3.9 - 5.3 cm LV Systolic Diameter PLAX 4.4 cm LV Chamber Size 3.6 cm IVS Diastolic Thickness 1.2 cm 0.6 - 1.0 / 0.6 - 0.9 cm IVS Systolic Thickness 1.2 cm LVPW Diastolic Thickness 1.7 cm 0.6 - 1.0 / 0.6 - 0.9 cm LVPW Systolic Thickness 1.8 cm RV Chamber Size 3.2 cm LVOT Diameter 2.1 cm LV Ejection Fraction 2D Teich 35.1 % LV Ejection Fraction MOD 2C 65.0 % LV Ejection Fraction 2C AL 67.0 % LA Diameter 5.2 cm LA Width 3.9 cm LA Height 5.7 cm RA Width 3.5 cm RA Height 5.8 cm Aorta at Sinotubular Diameter 3.8 cm M-MODE LV Diastolic Diameter MM 5.8 cm 4.2 - 5.9 / 3.9 - 5.3 cm LV Systolic Diameter MM 2.8 cm LV Ejection Fraction MM Teich 81.7 % IVS Diastolic Thickness MM 1.3 cm 0.6 - 1.0 / 0.6 - 0.9 cm IVS Systolic Thickness MM 2.3 cm LVPW Diastolic Thickness MM 1.2 cm 0.6 - 1.0 / 0.6 - 0.9 cm LVPW Systolic Thickness MM 1.9 cm Aortic Annulus Diameter 2.8 cm LA Ao Ratio MM 2.2 MV E Point Septal Separation 0.6 cm DOPPLER AV Peak Velocity 218.0 cm/s LVOT Peak Velocity 116.0 cm/s AV Area Cont Eq vti 2.0 cm squared AV Area Cont Eq pk 1.9 cm squared MV Area PHT 3.9 cm squared Mitral E to A Ratio 1.0 MV E' Velocity 42.0 cm/s Mitral E to MV E' Ratio 7.4 Mitral E to LV E' Lateral Ratio 8.1 Mitral E to LV E' Septal Ratio 6.9 TR Peak Velocity 183.7 cm/s TR Peak Gradient 13.5 mmHg TR Mean Velocity 123.9 cm/s TR Mean Gradient 7.0 mmHg TR Velocity Time Integral 40.3 cm TV Peak E Velocity 77.0 cm/s Right Atrial Pressure 5.0 mmHg Pulmonary Artery Systolic Pressu 18.5 mmHg PV Peak Velocity 79.0 cm/s RV Acceleration Time 0.2 s RV Ejection Time 0.4 s RV AcT/ET 0.4 FINDINGS Left Ventricle Normal left ventricular size. LV systolic function is normal with EF of 55-60%. No regional wall motion abnormalities. Normal diastolic function Right Ventricle The right ventricle is normal in size and function. Right Atrium The right atrium is normal in size. Left Atrium The left atrium is normal in size. Mitral Valve Structurally normal mitral valve without significant stenosis or prolapse. There is no mitral regurgitation. Aortic Valve Structurally normal aortic valve without significant sclerosis or stenosis. There is no aortic regurgitation. Tricuspid Valve Structurally normal tricuspid valve without significant stenosis or regurgitation. Insufficient TR jet to calculate RVSP. Pulmonic Valve Structurally normal pulmonic valve without significant stenosis. There is no pulmonic regurgitation. Pericardium Normal pericardium without effusion. Aorta Normal ascending aorta dimension. CONCLUSIONS LV systolic function is normal with no regional wall motion abnormalities. Diastolic function is normal No significant valvular heart disease Compared to prior echocardiogram from 07/20/2020, LV systolic function has normalized now. Jose R Iraheta MD (Electronically Signed) Final Date: 02 January 2021 15:24 S
== END 2020-12-28 13:11 | disposition home or self-care (01) ==
LOC: US 13:11
PROVIDERS: PCP Family Medicine; Visit Provider Internal Medicine
DX: I25.119 Atherosclerotic heart disease of native coronary artery with unspecified angina pectoris (principal)
CPT/HCPCS: 93306

== ENCOUNTER 2021-05-23 11:22 | Emergency (ER) | payer OTHER, SELFPAY ==
[2021-05-23 11:45] VITALS: BP 185/98; PULSE 62; RESP 16; TEMP 37.3; O2SAT 96; BMI 40.0
[2021-05-23 14:13] LABS: Add Urine Microscopic? YES; Bilirubin Urine Neg (Negative); Blood Urine 3+ (Negative); Glucose Urine UA Norm (Normal); Ketones Urine Negative (Negative); Leukocyte Esterase Urine Negative (Negative); Nitrate Urine Negative (Negative); Protein Urine Neg (Negative); Urine Appearance Clear (CLEAR); Urine Color Yellow (Yellow); Urobilinogen Urine Norm (Negative); pH Urine 6 (5-7)
[2021-05-23 14:38] LABS: Add Urine Culture? Yes; Bacteria Urine TRACE /hpf; RBC Urine 80-100 /hpf (0-2); Squamous Epithelial Cell Urine RARE /hpf (0-5)
[2021-05-23 14:48] VITALS: BP 207/108; PULSE 54; RESP 14; TEMP 37.1; O2SAT 93
--- NOTE | 2021-05-23 15:03 | XRR_ITS ---
PROCEDURE INFORMATION: Exam: XR Pelvis Exam date and time: 05/23/2021 3:03 PM Age: 65 years old Clinical indication: Other: Possible urethral stone; ; Additional info: Possible urethral stone; Need two views of penis please TECHNIQUE: Imaging protocol: XR pelvis. Views: 1 or 2 view. COMPARISON: No relevant prior studies available. FINDINGS: Bones/joints: Unremarkable. No acute fracture. Soft tissues: Unremarkable. XR/XR pelvis 1-2V* [id number] IMPRESSION: No evident urethral stone.
--- NOTE | 2021-05-23 15:03 | PC.NURSE ---
PATIENT RATES PAIN WHEN URINATING A 5/10. AT REST PATIENT PAIN IS 0/10.
--- NOTE | 2021-05-23 15:04 | W.ED.MALEGU ---
HPI - Male Genitourinary General: Chief complaint: Urogenital-Male Stated complaint: N/V, BLOOD IN URINE Time Seen by Provider: 05/23/21 14:46 Source: patient Mode of arrival: ambulatory Limitations: no limitations History of Present Illness: HPI Narrative: Patient is a 65-year-old male here for concerns of a possible stone in his urethra. Patient tells me he has a known history of kidney and ureter stones. He states he has had mild discomfort to his left flank for 1.5 months now that doesn't really bother him. He states this morning when he went to urinate he had severe pain to the tip of his penis and noted he was urinating gross blood with clots. He states he is not having any discomfort at rest. No change in his urine stream. MD Complaint: other (severe penile pain with urination) Onset (ago): hour(s) Duration: intermittent Location: penis Severity: severe Severity scale (1-10): >10 Quality: sharp Exacerbating factors: urination Associated symptoms: Reports no associated symptoms, dysuria and hematuria; Deny nausea or vomiting Review of Systems Const: Denies: fever(s), chills, body aches, fatigue or malaise Card: Denies: chest pain Resp: Denies: dyspnea GI: Denies: abdominal pain, nausea, vomiting or diarrhea : Reports: flank pain, dysuria and hematuria; Denies: urinary frequency, urinary hesitancy or difficulty starting urination Skin/Breast: Denies: rash Neuro: Denies: headache(s) [facility] ED PFSH: Medical History Aftercare following knee joint replacement surgery Coronary artery disease Hematuria Resolved after stopping IV anticoagulation and IV antiplatelets Family History Father CAD (coronary artery disease) Mother CAD (coronary artery disease) Grandfather CAD (coronary artery disease) Grandmother CAD (coronary artery disease) Cancer Denies family history of Diabetes Clotting disorder Dementia Chronic kidney disease (CKD) Suicide Anesthesia complication Bleeding disorder Lung disease Stroke Physical Exam Const: COMMON NORMALS: no acute distress, patient oriented x3, no limitations and alert GENERAL APPEARANCE: cooperative NUTRITIONAL APPEARANCE: obese Resp: COMMON NORMALS: normal respiratory effort Cardio: COMMON NORMALS: regular rate and regular rhythm RATE: regular rate RHYTHM: regular rhythm GI: COMMON NORMALS: Normal to inspection, nondistended, normoactive bowel sounds present, Soft to palpation, non-tender, No hepatosplenomegaly present and no masses PALPATION: Yes Soft to palpation and Yes No hepatosplenomegaly present : BLADDER/KIDNEY EXAM: Yes CVA tenderness on the left (mild) PENIS: normal penis and other (no stone palpated) MEATUS: meatus normal and No Blood at meatus present Back/Pelvis: GENERAL BACK: Yes CVA tenderness Neuro: COMMON NORMALS: patient oriented x3 SENSORIUM/ORIENTATION: Yes alert Course Vital Signs: Vital signs: Vital Signs Temperature 98.7 F 05/23/21 14:48 Pulse Rate 64 05/23/21 16:00 Respiratory Rate 16 05/23/21 16:00 Blood Pressure 159/86 05/23/21 16:00 Pulse Oximetry 97 05/23/21 16:00 MDM - Male MDM Narrative: Medical decision making narrative: No urethral stone visualized on XR. CT imaging shows bilateral kidney stones but none seen within collecting system. I did look at pts CT scan and thought I visualized urethral stone but when I contacted vrad radiologist he said he too saw this and believes it was a calcification within the corpus cavernosum/spongiosum. It is very possible patient recently passed a stone. He does feel like his symptoms are improving and has noticed less and less blood with each urination. Will have him follow up with Dr. Sethi in case symptoms persist. Return to ED precautions given. Does not want pain/nausea meds. Lab Data: Labs: Lab Results 05/23/21 05/23/21 05/23/21 Range/Units 11:43 15:29 15:29 WBC 7.9 (4.0-10.0) 10^3/ uL RBC 4.78 (4.1-5.3) 10^6/u L Hgb 14.7 (11.7-16.6) g/dL Hct 45.0 (42.0-52.0) % MCV 94.1 H (80-94) fL MCH 30.8 (28.0-34.0) pg MCHC 32.7 (30.0-36.0) g/dL RDW 13.5 (12.1-15.1) % Plt Count 266 (130-400) 10^3/c mm MPV 10.3 (7.4-10.4) fL Neut % (Auto) 67.2 % Lymph % (Auto) 22.1 % [place] % (Auto) 6.3 % Eos % (Auto) 3.4 % Baso % (Auto) 0.5 % Neut # (Auto) 5.29 (1.8-7.7) 10^3/u L Lymph # (Auto) 1.7 (0.8-4.8) 10^3/u L [place] # (Auto) 0.5 (0.2-0.9) 10^3/u L Eos # (Auto) 0.3 (0.0-0.8) 10^3/u L Baso # (Auto) 0.0 (0.0-0.1) 10^3/u L Nucleated RBC % (a uto) 0 % Nucleated RBCs # 0.0 /100WBC Sodium 139 (136-145) mmol/L Potassium 4.1 (3.5-5.1) mmol/L Chloride 100 (98-107) mmol/L Carbon Dioxide 26 (22-29) mmol/L Anion Gap 17.1 (5-19) BUN 16 (8-23) mg/dL Creatinine 0.7 (0.7-1.2) mg/dL GFR Calculation 113.9 (90-130) mL/min Glucose 99 (65-115) mg/dL Calculated Osmolal ity 289 (285-295) mOsm/k g Calcium 9.1 (8.5-10.5) mg/dL Total Bilirubin 0.3 (0.15-1.2) mg/dL AST 17 (0-40) U/L ALT 28 (0-41) U/L Alkaline Phosphata se 48 (40-130) IU/L Total Protein 7.3 (6.6-8.7) g/dL Albumin 4.3 (3.5-5.2) g/dL Globulin 3.0 (1.3-4.6) g/dL Urine Color Yellow (Yellow) Urine Appearance Clear (CLEAR) Urine pH 6 (5-7) Ur Specific Gravit y 1.010 (1.005-1.030) Urine Protein Neg (Negative) Urine Glucose (UA) Norm (Normal) Urine Ketones Negative (Negative) Urine Blood 3+ H (Negative) Urine Nitrate Negative (Negative) Urine Bilirubin Neg (Negative) Urine Urobilinogen Norm (Negative) mg/dL Ur Leukocyte Ceci ase Negative (Negative) Urine RBC 80-100 H (0-2) /hpf Urine WBC None (0-5) /hpf Ur Squamous Epith Cells Rare (0-5) /hpf Amorphous Sediment Not Reportable Urine Bacteria Trace (NONE) /hpf Imaging Data: CT renal: Radiologist's impression: [facility] [facility] [address] [address] Scan Report Signed Patient: Fidel Moreno Unit #: [id number] : 1955 Age/Sex: 65 / M ADM Date: 05/23/21 Loc: ER Room/Bed: Attending Dr: Ordering Provider/Ordering MD: Sharonda Scruggs Date of Service: 05/23/21 Procedure(s): CT kidney stone [id number] Accession Number(s): [id number] Report Number: [id number] PROCEDURE INFORMATION: Exam: CT Abdomen And Pelvis Without Contrast Exam date and time: 05/23/2021 3:45 PM Age: 65 years old Clinical indication: Other: Hematuria; Abdominal pain; Flank; Left; Prior surgery; Surgery type: Testicle; Additional info: Hematuria; Penile pain with urination; L flank pain TECHNIQUE: Imaging protocol: Computed tomography of the abdomen and pelvis without contrast. Radiation optimization: All CT scans at this facility use at least one of these dose optimization techniques: automated exposure control; mA and/or kV adjustment per patient size (includes targeted exams where dose is matched to clinical indication); or iterative reconstruction. COMPARISON: CR XR pelvis 1-2V* [id number] 05/23/2021 3:30 PM RADIATION DOSE METRICS: Total DLP (mGy-cm): 2044.4 FINDINGS: Liver: 1.8 cm simple cyst in the left hepatic lobe. Probable additional subcentimeter simple cysts in the left hepatic lobe also noted. No intrahepatic biliary dilation. Gallbladder and bile ducts: Normal. No calcified stones. No ductal dilation. Pancreas: Mild fatty atrophy of the pancreas. No pancreatic/peripancreatic inflammation. No pancreatic ductal dilation. Spleen: Normal. No splenomegaly. Adrenal glands: Normal. No mass. Kidneys and ureters: There is a 4 mm nonobstructing stone in the lower pole of the right kidney. Several cysts noted within the left kidney measuring up to 5.6 cm in size in the lower pole. Linear nonobstructing stones in the left pelvicaliceal system measuring up to 1.6 cm in the renal pelvis. Scattered cysts noted throughout the left kidney measuring up to 7 cm in the lower pole. No stone seen within the bladder or ureters. No hydronephrosis. Stomach and bowel: Colonic diverticulosis without findings of acute diverticulitis. Appendix: No evidence of appendicitis. Intraperitoneal space: Unremarkable. No free air. No significant fluid collection. Vasculature: Mild scattered wall calcifications of the abdominal aorta and its distal branches. Coronary artery calcifications noted. Lymph nodes: Unremarkable. No enlarged lymph nodes. Urinary bladder: Unremarkable as visualized. Reproductive: Unremarkable as visualized. Bones/joints: Unremarkable. No acute fracture. Soft tissues: Small fat containing umbilical hernia. CT/CT kidney stone [id number] IMPRESSION: Bilateral nonobstructing nephrolithiasis, more pronounced on the left. No obstructing stones within the urinary collecting system. COMMENTS: Consistent with the [employer]'s Incidental Findings Committee white paper (J Am Sri Radiol 2018): Any incidental renal lesion less than 1 cm or classified as too small to characterize, or any incidental cystic renal lesion characterized as simple-appearing, is likely benign. No follow-up imaging is recommended for these lesions per consensus recommendations based on imaging criteria. Radiation Dose CTDIVOL = (mGy): DLP = 2045.4 (mGy-cm) Dictated By: Jose A Andujar DO Signed By: Jose A Andujar DO Signed Date/Time: 05/23/211625 DD/ 162 Discharge Plan Discharge Patient Disposition: Home Clinical Impression: Gross hematuria, Painful urination Condition: Stable Prescriptions: No Action coenzyme Q10 [CoQ-10] 100 mg capsule 100 mg PO DAILY RF: 0 omeprazole 40 mg Capsule,Delayed Release(Dr/Ec) 40 mg PO DAILY RF: 0 alprazolam [Xanax] 0.25 mg Tablet 0.25 mg PO BEDTIME PRN (Reason: unknown) RF: 0 ascorbic acid (vitamin C) [Vitamin C] 500 mg Tablet 500 mg PO DAILY RF: 0 cholecalciferol (vitamin D3) [Vitamin D3] 50 mcg (2,000 unit) Tablet See Rx Instructions .ROUTE .COMPLEX RF: 0 acetaminophen [Tylenol Extra Strength] 500 mg Tablet 1,000 mg PO PRN RF: 0 Centrum Men 8 mg iron- 200 mcg-600 mcg Tablet 1 tab PO DAILY RF: 0 Slow Release Iron 1 tab PO DAILY RF: 0 clopidogrel 75 mg Tablet 75 mg PO DAILY Qty: 60 RF: 6 aspirin 81 mg Tablet,Delayed Release (Dr/Ec) 81 mg PO DAILY Qty: 60 RF: 3 nitroglycerin 0.4 mg Tablet, Sublingual 0.4 mg sublingual Q5M PRN (Reason: Chest Pain) Qty: 30 RF: 0 atorvastatin 10 mg tablet 10 mg PO DAILY Qty: 30 RF: 6 metformin 500 mg tablet 1,000 mg PO DAILY@1500 RF: 0 lisinopril 10 mg tablet 30 mg PO DAILY RF: 0 metoprolol tartrate 25 mg tablet 12.5 mg PO BID RF: 0 Discharge Orders: Discharge ED (Routine); Ordered 05/23/21 Ordered By: Sharonda Scruggs Referrals: Rafa Sethi MD [Physician] - Cristiane Torres MD [Primary Care Provider] - Activity Restrictions/Additional Instructions: Please return to the emergency department for worsening or severe flank pain, worsening blood in your urine, severe penile pain, inability to urinate, fevers, severe abdominal pain, or any other concerns you may have. Case management should place a referral to see Dr. Sethi. As we discussed this referral most likely will have to be approved by the [place]. Coding Level of Care Code ED Facility Specialist for Emilia Ni
[2021-05-23 15:35] LABS: Basophils % 0.5 %; Eosinophils # 0.3 10^3/uL (0.0-0.8); Eosinophils % 3.4 %; Hemoglobin 14.7 g/dL (11.7-16.6); Lymphocytes # 1.7 10^3/uL (0.8-4.8); Lymphocytes % 22.1 %; Mean Corpuscular HGB Conc 32.7 g/dL (30.0-36.0); Mean Corpuscular Hemoglobin 30.8 pg (28.0-34.0); Mean Corpuscular Volume 94.1 fL (80-94); Mean Platelet Volume 10.3 fL (7.4-10.4); Monocytes # 0.5 10^3/uL (0.2-0.9); Monocytes % 6.3 %; Neutrophils # 5.29 10^3/uL (1.8-7.7); Neutrophils % 67.2 %; Nucleated Red Blood Cells % 0 %; Platelet Count 266 10^3/cmm (130-400); Red Blood Count 4.78 10^6/uL (4.1-5.3); Red Cell Distribution Width 13.5 % (12.1-15.1); White Blood Count 7.9 10^3/uL (4.0-10.0)
--- NOTE | 2021-05-23 15:45 | CTR_ITS ---
PROCEDURE INFORMATION: Exam: CT Abdomen And Pelvis Without Contrast Exam date and time: 05/23/2021 3:45 PM Age: 65 years old Clinical indication: Other: Hematuria; Abdominal pain; Flank; Left; Prior surgery; Surgery type: Testicle; Additional info: Hematuria; Penile pain with urination; L flank pain TECHNIQUE: Imaging protocol: Computed tomography of the abdomen and pelvis without contrast. Radiation optimization: All CT scans at this facility use at least one of these dose optimization techniques: automated exposure control; mA and/or kV adjustment per patient size (includes targeted exams where dose is matched to clinical indication); or iterative reconstruction. COMPARISON: CR XR pelvis 1-2V* [id number] 05/23/2021 3:30 PM RADIATION DOSE METRICS: Total DLP (mGy-cm): 2044.4 FINDINGS: Liver: 1.8 cm simple cyst in the left hepatic lobe. Probable additional subcentimeter simple cysts in the left hepatic lobe also noted. No intrahepatic biliary dilation. Gallbladder and bile ducts: Normal. No calcified stones. No ductal dilation. Pancreas: Mild fatty atrophy of the pancreas. No pancreatic/peripancreatic inflammation. No pancreatic ductal dilation. Spleen: Normal. No splenomegaly. Adrenal glands: Normal. No mass. Kidneys and ureters: There is a 4 mm nonobstructing stone in the lower pole of the right kidney. Several cysts noted within the left kidney measuring up to 5.6 cm in size in the lower pole. Linear nonobstructing stones in the left pelvicaliceal system measuring up to 1.6 cm in the renal pelvis. Scattered cysts noted throughout the left kidney measuring up to 7 cm in the lower pole. No stone seen within the bladder or ureters. No hydronephrosis. Stomach and bowel: Colonic diverticulosis without findings of acute diverticulitis. Appendix: No evidence of appendicitis. Intraperitoneal space: Unremarkable. No free air. No significant fluid collection. Vasculature: Mild scattered wall calcifications of the abdominal aorta and its distal branches. Coronary artery calcifications noted. Lymph nodes: Unremarkable. No enlarged lymph nodes. Urinary bladder: Unremarkable as visualized. Reproductive: Unremarkable as visualized. Bones/joints: Unremarkable. No acute fracture. Soft tissues: Small fat containing umbilical hernia. CT/CT kidney stone [id number] IMPRESSION: Bilateral nonobstructing nephrolithiasis, more pronounced on the left. No obstructing stones within the urinary collecting system. COMMENTS: Consistent with the [employer]'s Incidental Findings Committee white paper (J Am Sri Radiol 2018): Any incidental renal lesion less than 1 cm or classified as too small to characterize, or any incidental cystic renal lesion characterized as simple-appearing, is likely benign. No follow-up imaging is recommended for these lesions per consensus recommendations based on imaging criteria. Radiation Dose CTDIVOL = (mGy): DLP = 2045.4 (mGy-cm)
[2021-05-23 16:00] VITALS: BP 159/86; PULSE 64; RESP 16; O2SAT 97
[2021-05-23 16:10] LABS: Alanine Aminotransferase 28 U/L (0-41); Albumin Level 4.3 g/dL (3.5-5.2); Alkaline Phosphatase 48 IU/L (40-130); Anion Gap 17.1 (5-19); Aspartate Amino Transferase 17 U/L (0-40); Blood Urea Nitrogen 16 mg/dL (8-23); Calcium 9.1 mg/dL (8.5-10.5); Carbon Dioxide 26 mmol/L (22-29); Chloride 100 mmol/L (98-107); Glomerular Filtration Rate 113.9 mL/min (90-130); Glucose 99 mg/dL (65-115); Osmolality Calculated 289 mOsm/kg (285-295); Potassium 4.1 mmol/L (3.5-5.1); Sodium 139 mmol/L (136-145); Total Bilirubin 0.3 mg/dL (0.15-1.2); Total Protein 7.3 g/dL (6.6-8.7)
--- NOTE | 2021-05-23 16:13 | PC.NURSE ---
PATIENT RATED PAIN A 4/10 WHEN URINATING. PATIENT IS NOW RESTING IN BED WITH A PAIN RATING OF 0/10.
[2021-05-23 17:00] VITALS: BP 161/93; PULSE 72; RESP 16; O2SAT 95
--- NOTE | 2021-05-24 09:53 | DCPLANNER ---
group fitness manager had message to schedule follow up appointment for patient with Dr. Sethi for bilat kidney stone and penile pain. group fitness manager called the office of Dr. Sethi, spoke with Katja, gave clinic patients information. group fitness manager was told that patients information would be printed and reviewed. Clinic will call patient with appointment information. Patient has [employer] insurance, [employer] emailed patients information to Diane with [employer] [facility], so that the authorization could be started.
--- NOTE | 2021-05-27 09:52 | DCPLANNER ---
Patient has a follow up appointment scheduled for Monday, May 31, 2021 at 1:[address] Sethi. Clinic will call patient with appointment information.
--- NOTE | 2021-06-09 11:45 | DCPLANNER ---
Patient had a follow up appointment scheduled for 05.31.[address] Sethi - patient did attend appointment.
== END 2021-05-23 16:55 | disposition home or self-care (01) ==
PROVIDERS: Emergency Provider Physician Assistant; PCP Family Medicine
DX: R31.0 Gross hematuria (principal); R30.9 Painful micturition, unspecified; Z79.84 Long term (current) use of oral hypoglycemic drugs; Z79.02 Long term (current) use of antithrombotics/antiplatelets; Z79.82 Long term (current) use of aspirin; I25.10 Atherosclerotic heart disease of native coronary artery without angina pectoris
CPT/HCPCS: 72170; 74176; 80053; 81001; 85025; 87086; 99283

== ENCOUNTER 2021-05-31 12:27 | Outpatient (CLI) | payer OTHER, SELFPAY ==
--- NOTE | 2021-05-31 12:30 | XR_ITS ---
WS: [id number] XR KUB [id number] REASON FOR EXAM: KIDNEY STONES FINDINGS: There is a 1.8 cm calculus overlying the left kidney which correlates with the recent CT scan. There is a 4 mm right renal calculus which correlates with the recent No ureteral or bladder calculi are identified. No other significant abdominal abnormality is noted. CT scan. XR/XR KUB [id number] IMPRESSION: Bilateral renal calculi as above.
== END 2021-05-31 12:28 | disposition home or self-care (01) ==
LOC: RAD 12:31
PROVIDERS: PCP Family Medicine; Visit Provider Urology
DX: N20.0 Calculus of kidney (principal)
CPT/HCPCS: 74018; 81003

== ENCOUNTER 2021-08-30 12:32 | Outpatient (CLI) | payer OTHER, SELFPAY ==
--- NOTE | 2021-08-30 12:45 | XR_ITS ---
WS: [id number] Exam: XR KUB [id number] Date/Time of Exam: 08/30/2021 12:45 PM Reason For Exam: staghorn renal calculus Comparison 05/31/2021. A staghorn calculus is noted in the left kidney. There are also calcifications superimposing the righ t renal silhouette suspicious for renal stones. No bowel obstruction or free air. No sign of organ en largement. Regional bony structures appear to be intact. XR/XR KUB [id number] IMPRESSION: 1. As prominent staghorn calculus in the left kidney. There are also calcificat ions superimposing the right kidney which are also likely renal stones. 2. No acute abdominal process noted.
== END 2021-08-30 12:33 | disposition home or self-care (01) ==
LOC: RAD 12:35
PROVIDERS: PCP Family Medicine; Visit Provider Urology
DX: N20.0 Calculus of kidney (principal)
CPT/HCPCS: 74018; 81003

== ENCOUNTER → 2021-09-05 09:36 | Outpatient (BNVA) | payer OTHER, SELFPAY | PROVIDERS: PCP Family Medicine; Visit Provider Nurse Practitioner Family | DX: Z01.812 Encounter for preprocedural laboratory examination (principal); N20.0 Calculus of kidney; Z20.822 Contact with and (suspected) exposure to COVID-19 | CPT/HCPCS: 87635 ==

== ENCOUNTER 2021-09-08 11:27 | Day surgery (SDC) | payer OTHER, SELFPAY ==
[2021-09-07 15:30] VITALS: BMI 38.0
[2021-09-08] VITALS (11 sets, daily range): BP systolic 159–226; BP diastolic 20–120; PULSE 61–73; RESP 16–20; TEMP 36.1–36.9; O2SAT 97–100
--- NOTE | 2021-09-08 | SCC_ITS ---
Procedure Done: 1. Cystoscopy, left retrograde ureteropyelogram. 2. Left flexible ureterorenoscopy with laser lithotripsy of 2 large stones. 3. Left ureteral stent placement 4. Placement of Cook catheter over guidewire 85.6 seconds of fluoroscopic guidance, for a cumulative dose of 40.38 mGy, was provided to Dr. Sethi by the radiology department. C-arm images of the abdomen were saved for the patient's permanent record. MONIKD
--- NOTE | 2021-09-08 11:59 | SC_ITS ---
WS: [id number] C-ARM RADIOGRAPHS ABDOMEN; 12 IMAGES HISTORY: Left ureteroscopic stone fragmentation COMPARISON: 08/30/2021 Retrograde filling of the LEFT ureter. There is a vague filling defect near the pelvic brim which may be artifact. Ureter is not dilated. There is a larger filling defect in the renal pelvis consistent with a previous the described calcification near the UP junction. Double pigtail ureteral stent has b een satisfactorily positioned. SC/C-arm [place] for Urology IMPRESSION: 1. Intraoperative placement of a double pigtail LEFT ureteral stent in good po sition. 2. Large filling defect consistent with a stone at the LEFT UP junction.
--- NOTE | 2021-09-08 12:54 | ANES.PREANE2 ---
Pre-Anesthetic Assessment Pre-Anesthetic Assessment: Height/Weight: Height 1.83 m Weight 127.006 kg Temp Pulse Resp BP Pulse Ox 98.4 F 61 18 171/100 99 09/08/21 12:19 09/08/21 12:19 09/08/21 12:19 09/08/21 12:39 09/08/21 12:19 Preop Diagnosis: Partial staghorn calculus left kidney Proposed Procedure: Operation Date: 09/08/21 13:15 Proposed Procedures p Laser Lithotripsy 88296 06011 N20.0(Not Applicable) - MD shanna Minor Cystoscopy(Not Applicable) - MD shanna Minor Retrograde Pyelogram(Left) - MD shanna Minor Ureteroscopy(Not Applicable) - MD shanna Minor Ureteral Stent Placement(Not Applicable) - Rafa Sethi MD Was Beta Maxwell taken within 24 hours: Yes Was Clonidine taken within 24 hours: N/A Last intake: Intake Last Liquid Date 09/08/21 Last Liquid Time 09:00 Last Solid Date 09/07/21 Last Solid Time 21:30 Social: Social History: No alcohol Exam: Pre-Anes Outpt Exam: alert, oriented x 3, clear to auscultation bilaterally and regular rate & rhythm Airway: Submandibular: WNL Cervical ROM: WNL MP: 3 History/ROS: No significant complaints Pulmonary: Pulmonary: CAREY and Sleep apnea CV/HEM: CV/HEM: CAD, HTN and PA Comments: PA in 2019 w stents placed : Comments: Renal calculi Hepatic: Hepatic: None reported GI: GI: None reported Metabolic: Metabolic: DM, Hyperlipidemia and Morbid obesity Neuropsych: Neuropsych: None reported Anesthetic Plan: ASA status: 3 Anesthesia: General and Choice Risk of > 500 ml blood loss (7ml/kg in children): No PFSH Anesthesia PFSH: Medical History Aftercare following knee joint replacement surgery Bilateral kidney stones Coronary artery disease Hematuria Resolved after stopping IV anticoagulation and IV antiplatelets Penile pain Surgical History History of ankle surgery Hx of arthroscopic knee surgery Hx of foot surgery Hx of neck surgery Hx of total knee replacement Family History Father , at age 56 CAD (coronary artery disease) Mother CAD (coronary artery disease) Grandfather CAD (coronary artery disease) Grandmother CAD (coronary artery disease) Cancer Denies family history of Diabetes Clotting disorder Dementia Chronic kidney disease (CKD) Suicide Anesthesia complication Bleeding disorder Lung disease Stroke Social History Smoking and tobacco status: former smoker Alcohol intake: former Marital status: Current occupational status: retired History of recent travel: No Data Anesthesia Cardiac Studies: No Data to Display
[2021-09-08] MEDS: sodium chloride 0.9% 1,000 ML 30 ML IV (13:12)
--- NOTE | 2021-09-08 13:50 | W.PM.OPSUD ---
Surgery/Procedure H&P Update DATE OF PROCEDURE: September 08, 2021 DATE H&P PERFORMED: 08/30/21 H&P UPDATE INFORMATION: I have reviewed H&P completed within last 30 days, I have examined patient prior to procedure, No changes to prior documentation and H&P is in [facility] EMR on date indicated CHANGES TO PREVIOUS DOCUMENTATION: We reviewed again the procedure with emphasis on access to the kidney, visualization as being a large part of success or failure in one setting. Potentially would require stenting for passive dilation if access to the kidney is poor. Potentially would require more than 1 procedure if visualization becomes limited based on the amount of debris created with laser lithotripsy. PREOP DIAGNOSIS: Partial staghorn calculus left kidney PLANNED PROCEDURE: Operation Date: 09/08/21 13:15 Proposed Procedures p Laser Lithotripsy [id number] 29647 N20.0(Not Applicable) - Rafa Sethi MD s Cystoscopy(Not Applicable) - Rafa Sethi MD s Retrograde Pyelogram(Left) - Rafa Sethi MD s Ureteroscopy(Not Applicable) - Rafa Sethi MD s Ureteral Stent Placement(Not Applicable) - Rafa Sethi MD
[2021-09-08] MEDS: levofloxacin-dextrose 5 % 500 MG/100 ML PREMIX 100 MG IV (13:59)
[2021-09-08] MEDS: iohexol 300 mg/mL 50 mL Btl (OR ONLY) XX (14:21)
--- NOTE | 2021-09-08 16:12 | PM.OP ---
Operative Report Date of procedure: September 08, 2021 Pre-op Diagnosis: Partial staghorn calculus left kidney x2 Post-op diagnosis: same Procedure Done: 1. Cystoscopy, left retrograde ureteropyelogram. 2. Left flexible ureterorenoscopy with laser lithotripsy of 2 large stones. 3. Left ureteral stent placement 4. Placement of Cook catheter over guidewire Specimens removed/disposition: Some sand particles representing stone fragments. Pathology: Stone fragments Surgeon: Navdeep Anesthesia: General Estimated blood loss: Less than 10 cc Urine output: Not measured Complications: None Findings: 1. Urethral stricture bulbar urethra required dilation with a scope 2. Both left renal calculi were accessible with flexible ureteroscopy and stones were fragmented with a 365 thulium superpulse laser fiber. 3. 7 Tristanian by 30 cm double-pigtail stent left indwelling at the completion of the procedure 4. [place] tip catheter passed over guidewire to help facilitate healing of post dilation urethral stricture. Condition: stable Disposition: PACU Brief History: Mr. Moreno is a very pleasant 66-year-old white male with a complicated history of stone disease with a recent diagnosis of 2 large stones in the left kidney. He is on chronic anticoagulants for coronary artery disease and had to be maintained on at least aspirin throughout the procedure. For that reason it was elected to proceed with retrograde endoscopy laser lithotripsy as opposed to ESWL. Patient was prepared for the possibility or even may be likelihood that it might require more than 1 treatment to clear the stones. Procedure: After routine preoperative evaluation examination and obtaining of informed consent he was taken to the operating suite on 09/08/2021 where general anesthesia was administered without difficulty after appropriate timeout was performed, SCDs confirmed to be functioning, preoperative antibiotics administered, beta-gary protocol confirmed. He was prepped and draped in usual sterile fashion in dorsolithotomy position paying careful attention to avoiding pressure points. 21 Tristanian cystoscope with 30 degree lens was advanced into the urethra and in the bulbar urethra there was a urethral stricture. The scope was manipulated beyond the urethral stricture into the bladder. The bladder was normal without evidence of stones. His prostate was pretty friable. An 8 Tristanian cone-tip catheter was intubated into the left ureteral orifice for left retrograde ureteropyelogram which showed normal course and caliber of the ureter. The renal pelvis showed a large filling defect consistent with a stone seen on CT scan and prior films. There was a second stone in an upper pole calyx that was also readily identifiable. A flexible tip guidewire was then advanced up the left ureter curling in the upper pole calyx in the left distal intramural tunnel was dilated with a 15 Tristanian 4 cm balloon with no waist. The balloon was removed and a second guidewire was passed with the first wire being secured to the drapes as a safety wire. The second wire was a working wire. A 38 cm ureteral access sheath was advanced as far as it would easily go up the left ureter under fluoroscopic guidance. Flexible ureteroscope was then passed over the guidewire after removal of the inner sheath on the access sheath, through the access sheath up into the left kidney. The 2 stones were easily identified. The larger of the 2 was in the renal pelvis and the other stone was in an upper pole calyx. A 365 ?m superpulse thulium laser fiber was utilized to fragment the larger stone first. It was arduous due to the size but eventually was completely fragmented. I could not see any more residual fragments that were large. A lot of them drifted into the lower pole calyx and were further fragmented there. After it was completed the scope was advanced into the upper pole calyx where the other stone was in it as well as fragmented in the same fashion. Excellent results on both of the stones and I could not see any substantial fragments remaining after careful inspection of the calyceal system post laser lithotripsy. This will need to be confirmed before stent removal obviously. Some of the fragments were flushed through the scope (sand sized). The ureteral access sheath was backed down to the hub of the flexible ureteroscope and the ureter was inspected as the scope was removed. There is no significant trauma identified. The cystoscope was then backloaded over the safety wire and then passed into the bladder. The area of dilation was significant enough to recommend leaving of indwelling Cook catheter for healing. A 7 Tristanian by 30 cm double-pigtail stent without string was advanced over the guidewire through the cystoscope into appropriate position as confirmed via fluoroscopy and cystoscopy. The wire was removed and placed back into the bladder and a 16 Tristanian [place] tip catheter was then advanced over the guidewire into the bladder without difficulty. Confirmation of position was made. The wire was removed balloon inflated catheter confirmed to be functioning well without significant bleeding and the procedure was completed. Tolerated the procedure well without complications and was awakened in the operating room and returned to the recovery room in stable condition. PLANS: 1. Anticipate discharge from outpatient surgery if he is not having significant bleeding or hematuria that would potentially jeopardize function of the catheter 2. Follow-up for voiding trial in my office on Sunday the . Reassess for stent removal after KUB approximately week later.
[2021-09-08] MEDS: hyDRALAzine 20 mg/mL INJ 1 mL 5 MG IVP (16:23)
--- NOTE | 2021-09-08 16:39 | SUR.PHASEI ---
placed on bed pollack.
[2021-09-08] MEDS: ondansetron 2 mg/ML SDV 2 mL 4 MG IVP (16:43)
--- NOTE | 2021-09-08 17:04 | SUR.PHASEI ---
16:40 PATIENT REQUESTING TO USE BEDSIDE COMMODE. NO FURTHER MEDS GIVEN SO PATIENT CAN BE ASSISTED TO COMMODE IN PHASE II RECOVERY.
[2021-09-08] MEDS: HYDROcodone-acetaminophen 5-325 mg Tablet 1 TAB PO (17:17)
[2021-09-13 14:48] LABS: Stone Source LEFT RENAL STONE
== END 2021-09-08 18:03 | disposition home or self-care (01) ==
PROVIDERS: PCP Family Medicine; Visit Provider Urology
PROC: (CPT 52356; principal; 2021-09-08 13:10)
PROC: 0TJB8ZZ Inspection of Bladder, Via Natural or Artificial Opening Endoscopic (ICD-10-PCS; CPT 52000; 2021-09-08 13:10)
PROC: (CPT 74420; 2021-09-08 13:10)
PROC: 0TJ98ZZ Inspection of Ureter, Via Natural or Artificial Opening Endoscopic (ICD-10-PCS; CPT 52351; 2021-09-08 13:10)
PROC: (CPT 50605; 2021-09-08 13:10)
DX: N20.0 Calculus of kidney (principal); N35.812 Other bulbous urethral stricture, male; R31.0 Gross hematuria; I10 Essential (primary) hypertension; E11.9 Type 2 diabetes mellitus without complications; I25.10 Atherosclerotic heart disease of native coronary artery without angina pectoris; Z87.442 Personal history of urinary calculi; Z87.891 Personal history of nicotine dependence; Z79.01 Long term (current) use of anticoagulants; Z79.84 Long term (current) use of oral hypoglycemic drugs
CPT/HCPCS: 52356; 76000; 82365; 88300; C2625; J0360; J1100; J1956; J2405; J2704; J3010; J3490; J7030

== ENCOUNTER 2021-09-20 06:45 | Outpatient (CLI) | payer OTHER, SELFPAY ==
--- NOTE | 2021-09-20 07:15 | XR_ITS ---
WS: [id number] Exam: XR KUB [id number] Date/Time of Exam: 09/20/2021 6:50 AM Reason For Exam: STAGHORN RENAL CALCULUS No bowel obstruction or free air. A left-sided ureteral stent catheter is noted and appears to be in satisfactory location. Calcifications superimpose both renal silhouettes and are most likely renal st ones. No sign of organ enlargement. Bony structures are intact. XR/XR KUB [id number] IMPRESSION: 1. Left-sided ureteral stent appearing to be in satisfactory position. 2. Calcifications are seen over both renal silhouettes and are likely renal sto myra. No acute abdominal process noted.
== END 2021-09-20 06:46 | disposition home or self-care (01) ==
LOC: RAD 06:46
PROVIDERS: PCP Family Medicine; Visit Provider Urology
DX: N20.0 Calculus of kidney (principal); Z96.0 Presence of urogenital implants; N35.919 Unspecified urethral stricture, male, unspecified site
CPT/HCPCS: 74018; 81003

== ENCOUNTER 2021-12-27 06:45 | Outpatient (CLI) | payer OTHER, SELFPAY ==
--- NOTE | 2021-12-27 15:00 | XR_ITS ---
WS: [id number] Exam: XR KUB [id number] Date/Time of Exam: 12/27/2021 6:54 AM Reason For Exam: STAGHORN RENAL CALCULUS Comparison 09/20/2017. No bowel obstruction or free air. A 1 cm calcification is seen along the left paraspinal region at th e level of L5. Bony structures are intact. No sign of organ enlargement. XR/XR KUB [id number] IMPRESSION: 1. No acute abdominal process. 2. 1 cm left paraspinal calcification at the level of L5. This might represent a urinary tract stone but is nonspecific in appearance.
== END 2021-12-27 06:46 | disposition home or self-care (01) ==
PROVIDERS: PCP Family Medicine; Visit Provider Urology
DX: N20.0 Calculus of kidney (principal)
CPT/HCPCS: 74018; 81003

== ENCOUNTER → 2022-02-23 12:14 | Outpatient (BNVA) | payer OTHER, SELFPAY | PROVIDERS: PCP Family Medicine; Visit Provider Internal Medicine | DX: I25.119 Atherosclerotic heart disease of native coronary artery with unspecified angina pectoris (principal); E78.5 Hyperlipidemia, unspecified; I25.2 Old myocardial infarction; I10 Essential (primary) hypertension; E11.9 Type 2 diabetes mellitus without complications; Z92.89 Personal history of other medical treatment; Z87.891 Personal history of nicotine dependence; Z79.82 Long term (current) use of aspirin; Z79.84 Long term (current) use of oral hypoglycemic drugs | CPT/HCPCS: 99214 ==

== ENCOUNTER → 2022-03-01 09:07 | Outpatient (BNVA) | payer OTHER, SELFPAY | PROVIDERS: PCP Family Medicine; Visit Provider Nurse Practitioner Family | DX: N40.1 Benign prostatic hyperplasia with lower urinary tract symptoms (principal) | CPT/HCPCS: 81003 ==

== ENCOUNTER 2022-05-23 14:59 | Emergency (ER) | payer OTHER, SELFPAY ==
[2022-05-23 16:02] VITALS: BP 168/80; PULSE 62; RESP 18; TEMP 36.8; O2SAT 97; BMI 37.3
--- NOTE | 2022-05-23 17:08 | W.ED.GENADLT ---
HPI - General Adult General: Chief complaint: General Medical Stated complaint: Knot on back of L leg Time Seen by Provider: 05/23/22 17:08 History of Present Illness: 66-year-old male patient comes in today for concerns of a bruise with a centralized not to the calf of the left lower extremity. Patient reports noticing it today. Patient had contacted his physician at the [facility] and was directed to the ER for further evaluation. Patient does have a history of prior pulmonary embolism and DVT. Patient is takes Plavix daily. Other medical history includes renal calculi, hyperlipidemia, coronary artery disease, diabetes, and hypertension. Review of Systems General: Reports: 10 or more systems reviewed and unremarkable except in HPI and below Musc: Reports: extremity pain and extremity swelling PFSH ED PFSH: Medical History Aftercare following knee joint replacement surgery Bilateral kidney stones BPH loc w urin obs/LUTS Coronary artery disease Hematuria Resolved after stopping IV anticoagulation and IV antiplatelets Penile pain Urethral stricture Surgical History History of ankle surgery Hx of arthroscopic knee surgery Hx of foot surgery Hx of neck surgery Hx of total knee replacement S/P ureteral stent placement Family History Father , at age 56 CAD (coronary artery disease) Mother CAD (coronary artery disease) Grandfather CAD (coronary artery disease) Grandmother CAD (coronary artery disease) Cancer Denies family history of Diabetes Clotting disorder Dementia Chronic kidney disease (CKD) Suicide Anesthesia complication Bleeding disorder Lung disease Stroke Social History Smoking and tobacco status: former smoker Alcohol intake: former Marital status: Current occupational status: retired History of recent travel: No Physical Exam Const: COMMON NORMALS: alert HENMT: COMMON NORMALS: normocephalic HEAD & SCALP: normocephalic Neck/C-Spine: COMMON NORMALS: no lymphadenopathy Resp: COMMON NORMALS: normal respiratory effort and clear to auscultation bilaterally AUSCULTATION: clear to auscultation bilaterally Cardio: COMMON NORMALS: regular rate RATE: regular rate Extremity: COMMON NORMALS: full ROM LEFT LOWER EXTREMITY: Yes lower leg (Ecchymotic 12 cm area to the calf with centralized 1 cm nodule) Neuro: SENSORIUM/ORIENTATION: Yes alert Skin: COMMON NORMALS: no rashes or lesions noted GENERAL SKIN EXAM: no rashes or lesions noted Course Vital Signs: Vital signs: Vital Signs Temperature 98.2 F 05/23/22 16:02 Pulse Rate 62 05/23/22 16:02 Respiratory Rate 18 05/23/22 16:02 Blood Pressure 168/80 05/23/22 16:02 Pulse Oximetry 97 05/23/22 16:02 MDM - General Adult Medical Decision Making 66-year-old male patient comes in today for complaints of bruising and tenderness to the left calf. On exam we note a large area of ecchymosis with a centralized 1 cm nodule. Vital signs are normal. Differential diagnosis includes hematoma, DVT, superficial thrombophlebitis, varicose vein. Ultrasound was performed and noted to hematoma. Patient was reassured and recommended to monitor for increased swelling, pain, redness. Follow-up with primary care or return to ER as needed. Patient and spouse both reported understanding. Discharge Plan Discharge Patient Disposition: Home Clinical Impression: Hematoma Condition: Stable Prescriptions: No Action coenzyme Q10 [CoQ-10] 100 mg capsule 100 mg PO DAILY 0RF tamsulosin 0.4 mg capsule 0.4 mg PO BID Qty: 180 3RF promethazine 25 mg suppository 25 mg NC Q6H PRN (Reason: sedation) Qty: 6 1RF omeprazole 40 mg Capsule,Delayed Release(Dr/Ec) 40 mg PO DAILY 0RF Rx Instructions: [facility] ascorbic acid (vitamin C) [Vitamin C] 500 mg Tablet 500 mg PO DAILY 0RF cholecalciferol (vitamin D3) [Vitamin D3] 50 mcg (2,000 unit) Tablet See Rx Instructions .ROUTE .COMPLEX 0RF Rx Instructions: TAKE 1000 MG IN THE MORNING AND 2000 MG IN THE EVENING acetaminophen [Tylenol Extra Strength] 500 mg Tablet 1,000 mg PO PRN 0RF Centrum Men 8 mg iron- 200 mcg-600 mcg Tablet 1 tab PO DAILY 0RF Slow Release Iron 1 tab PO DAILY 0RF clopidogrel 75 mg Tablet 75 mg PO DAILY Qty: 60 6RF Hold Instructions: Resume on 09/09/21. aspirin 81 mg Tablet,Delayed Release (Dr/Ec) 81 mg PO DAILY Qty: 60 3RF nitroglycerin 0.4 mg Tablet, Sublingual 0.4 mg sublingual Q5M PRN (Reason: Chest Pain) Qty: 30 0RF atorvastatin 10 mg tablet 10 mg PO DAILY Qty: 30 6RF lisinopril 10 mg tablet 30 mg PO DAILY 0RF Rx Instructions: DOSE CHANGE metoprolol tartrate 25 mg tablet 12.5 mg PO BID 0RF Rx Instructions: DOSE CHANGE hydrocodone-acetaminophen 5-325 mg tablet 1 tab PO Q8H PRN (Reason: pain) Qty: 15 0RF Discharge Orders: Discharge ED (Routine); Ordered 05/23/22 Ordered By: David Juarez Referrals: Cristiane Torres MD [Primary Care Provider] - Discharge Diet: Usual diet Discharge Activity: Increase activity as tolerated Patient Instructions: Hematoma (ED) Activity Restrictions/Additional Instructions: Home and rest, activity as tolerate. use warm packs to area for comfort, continue routine medications. Follow-up with primary care as directed. Monitor for increase swelling, redness and pain to lower leg and return to ER as needed. Coding Level of Care Code ED Coil Machine Supervisor for Chg Fwd Exam Detailed
--- NOTE | 2022-05-23 17:09 | USCV_ITS ---
Fidel Moreno Age: 66 Gender: M : 1955 Exam Date: 05/23/2022 17:22 Ordering Phys: David Juarez Technologist: OVIDIO [place] [facility] [place]ication: LLE PAIN HISTORY: Lower extremity pain. PROCEDURES: Venous duplex imaging was performed in only the left lower extremity. The following venous structures were evaluated: common femoral vein, profunda vein, proximal portion of the greater saphenous vein, superficial femoral vein, and the popliteal vein. In addition, the posterior tibial and peroneal trunk were evaluated. Serial compression, augmentation maneuvers, and spectral Doppler flow evaluation were performed. FINDINGS: Normal 2-D Doppler and augmentation and compressibility throughout the lower extremity venous structures. Additional imaging through the proximal calf veins also reveals no thrombus. Limited evaluation of the greater saphenous vein is patent with no thrombus. Smalll superficial collection measures 1.3x0.6x1.6cm in the calf. CONCLUSIONS No DVT left lower extremity. Superficial collection left calf, differential includes post traumatic injury or insect bite. Dr. Shweta Schultz DO (Electronically Signed) Final Date: 24 May 2022 07:53 S
== END 2022-05-23 17:47 | disposition home or self-care (01) ==
PROVIDERS: Emergency Provider Nurse Practitioner Family; PCP Family Medicine
DX: S80.12XA Contusion of left lower leg, initial encounter (principal); Z79.02 Long term (current) use of antithrombotics/antiplatelets; Z79.82 Long term (current) use of aspirin; I25.10 Atherosclerotic heart disease of native coronary artery without angina pectoris; Z87.891 Personal history of nicotine dependence; X58.XXXA Exposure to other specified factors, initial encounter
CPT/HCPCS: 93971; 99284

== ENCOUNTER 2022-08-24 12:22 | Outpatient (CLI) | payer OTHER, SELFPAY ==
--- NOTE | 2022-08-24 12:33 | XR_ITS ---
WS: [id number] KUB, AP view, 08/24/2022 Clinical Data: Kidney Stones Comparison: KUB, 12/27/2021 Findings: No abnormal intraabdominal masses or calcifications are seen. There is no dilatated small bowel or ev idence of obstruction. Fecal material and bowel gas obscure detail over both kidneys. There are vascular calcifications in t he true pelvis. XR/XR KUB [id number] Impression: Fecal material in the colon.
== END 2022-08-24 12:23 | disposition home or self-care (01) ==
PROVIDERS: PCP Family Medicine; Visit Provider Urology
DX: N40.1 Benign prostatic hyperplasia with lower urinary tract symptoms (principal); N99.111 Postprocedural bulbous urethral stricture, male; N20.0 Calculus of kidney; I25.119 Atherosclerotic heart disease of native coronary artery with unspecified angina pectoris; E11.9 Type 2 diabetes mellitus without complications; I10 Essential (primary) hypertension; I25.2 Old myocardial infarction; E78.5 Hyperlipidemia, unspecified; Z87.891 Personal history of nicotine dependence
CPT/HCPCS: 51741; 51798; 74018; 81003; 99213

== ENCOUNTER → 2023-02-22 13:38 | Outpatient (BNVA) | payer OTHER, SELFPAY | PROVIDERS: PCP Family Medicine; Visit Provider Internal Medicine | DX: I25.119 Atherosclerotic heart disease of native coronary artery with unspecified angina pectoris (principal); E11.9 Type 2 diabetes mellitus without complications; I10 Essential (primary) hypertension; I25.2 Old myocardial infarction; E78.5 Hyperlipidemia, unspecified; Z87.891 Personal history of nicotine dependence | CPT/HCPCS: 99214 ==

== ENCOUNTER → 2023-05-10 14:38 | Outpatient (BNVA) | payer OTHER, SELFPAY | PROVIDERS: PCP Family Medicine; Visit Provider Nurse Practitioner Family | DX: I10 Essential (primary) hypertension (principal); Z87.891 Personal history of nicotine dependence | CPT/HCPCS: 99213 ==

== ENCOUNTER → 2023-05-24 12:42 | Outpatient (BNVA) | payer OTHER, SELFPAY | PROVIDERS: PCP Family Medicine; Visit Provider Nurse Practitioner Family | DX: I10 Essential (primary) hypertension (principal); Z87.891 Personal history of nicotine dependence | CPT/HCPCS: 99213 ==

== ENCOUNTER 2023-06-28 11:26 | Emergency (ER) | payer OTHER, SELFPAY ==
[2023-06-28 12:43] VITALS: BP 141/97; PULSE 82; RESP 17; TEMP 36.6; O2SAT 97
--- NOTE | 2023-06-28 13:08 | USCV_ITS ---
Fidel Moreno Age: 67 Gender: M : 1955 Exam Date: 06/28/2023 14:00 Ordering Phys: Kaveh Ng DO Technologist: Len Patterson [place] [facility] [place]: Rt leg pain hx of dvt on lt leg PROCEDURES: Venous duplex imaging was performed in only the right lower extremity. The following venous structures were evaluated: common femoral vein, profunda vein, proximal portion of the greater saphenous vein, superficial femoral vein, and the popliteal vein. In addition, the posterior tibial and peroneal trunk were evaluated. FINDINGS: Normal 2-D Doppler and augmentation and compressibility throughout the lower extremity venous structures. Additional imaging through the proximal calf veins also reveals no thrombus. Limited evaluation of the greater saphenous vein is patent with no thrombus. CONCLUSIONS No evidence of right lower extremity DVT. George Montes MD (Electronically Signed) Final Date: 28 June 2023 14:59 S
--- NOTE | 2023-06-28 14:11 | ED_ITS ---
HPI - Extremity Problem General: Chief complaint: Extremity Problem,Nontraumatic Stated complaint: sent from heart care, 2 blood clot in left calf Time Seen by Provider: 06/28/23 13:41 Source: patient and family (Spouse) Mode of arrival: ambulatory Limitations: no limitations History of Present Illness: Patient is a 67-year-old male with history of coronary artery disease and pulmonary embolism who presents to the emergency department complaining of right leg pain onset 2-3 days. On 06/08 of this month, patient underwent a left knee revision surgery. One day following this, patient presented to [facility] in [facility] for evaluation of some new onset left leg bruising at the time-most likely related to surgery the day before but doppler ultrasound was ordered as a precaution and reportedly was negative for any signs of deep vein thrombosis. He states that after discharge he was rastafari with his physical therapy and staying active. Several days ago he began noticing swelling to the left leg so had an ultrasound of the leg again at [facility] yesterday and was told he had superficial thrombus. He feels like maybe he has over compensated on the right leg because now he has pain here too. No redness/swelling, calf pain noted to right leg. He reports that he has a significant history of clots in his leg, lungs, and heart and is concerned that he needs readjustment of his blood thinners. He currently takes aspirin/plavix. He denies any current or recent episodes of chest pain or shortness of breath. He also denies feeling any palpitations, any episodes of syncope, lightheadedness, or dizziness. MD Complaint: extremity pain (Right lower extremity) and extremity swelling (Left lower extremity) Onset (ago): day(s) Location: left and right Associated symptoms: Deny chest pain, fever(s) or rash Review of Systems Const: Denies: fever(s) or chills Eyes: Denies: change in vision or blurry vision Card: Denies: chest pain, palpitations, irregular heart rhythm, lightheadedness, syncope or dyspnea on exertion Resp: Denies: dyspnea, productive cough or pain on inspiration GI: Denies: abdominal pain, nausea, vomiting, heartburn or diarrhea : Denies: difficulty urinating or dysuria Musc: Reports: extremity pain (Right lower extremity), extremity swelling (Left lower extremity) and joint swelling (post op L knee); Denies: neck pain, back pain, joint pain or joint redness Skin/Breast: Denies: rash Neuro: Denies: numbness in extremities, weakness in extremities or sensory changes PFSH ED PFSH: Medical History Aftercare following knee joint replacement surgery Bilateral kidney stones BPH loc w urin obs/LUTS Coronary artery disease Hematuria Resolved after stopping IV anticoagulation and IV antiplatelets Penile pain Urethral stricture Surgical History History of ankle surgery Hx of arthroscopic knee surgery Hx of foot surgery Hx of neck surgery Hx of total knee replacement S/P ureteral stent placement Family History Father , at age 56 CAD (coronary artery disease) Mother CAD (coronary artery disease) Grandfather CAD (coronary artery disease) Grandmother CAD (coronary artery disease) Cancer Denies family history of Diabetes Clotting disorder Dementia Chronic kidney disease (CKD) Suicide Anesthesia complication Bleeding disorder Lung disease Stroke Social History Smoking and tobacco status: former smoker Alcohol intake: former Marital status: Current occupational status: retired Physical Exam Const: COMMON NORMALS: no acute distress, patient oriented x3, no limitations, alert and well nourished NUTRITIONAL APPEARANCE: overweight ORIENTATION/CONSCIOUSNESS: Yes awake, Yes oriented to person, Yes oriented to place and Yes oriented to time HENMT: COMMON NORMALS: normocephalic and atraumatic HEAD & SCALP: normocephalic and atraumatic Neck/C-Spine: COMMON NORMALS: full ROM, no lymphadenopathy, supple and no meningeal signs Chest: COMMONS NORMALS: normal inspection of the chest Resp: COMMON NORMALS: normal respiratory effort and clear to auscultation bilaterally AUSCULTATION: clear to auscultation bilaterally Cardio: COMMON NORMALS: regular rate and regular rhythm RATE: regular rate RHYTHM: regular rhythm Extremity: COMMON NORMALS: full ROM and capillary refill normal GENERAL: Yes normal exam except as noted RIGHT LOWER EXTREMITY: Yes upper leg LEFT LOWER EXTREMITY: Yes knee joint and Yes lower leg OTHER: Patient's right lower extremity is nontender to palpation without signs of edema, erythema, or venous stasis changes. No calf pain/negative Anitha's. He exhibits symmetrical DP/PT pulses bilaterally. Presence of wound dressing over his left knee. Mild diffuse swelling over the anterior aspect of the left knee expected post operative. No pallor, erythema, or venous stasis changes present in the left lower extremity. Neuro: COMMON NORMALS: patient oriented x3, moves all extremities, no focal motor deficits and no sensory deficits noted SENSORIUM/ORIENTATION: Yes alert, Yes oriented to person, Yes oriented to place and Yes oriented to time MENINGEAL SIGNS: Yes no meningeal signs Skin: COMMON NORMALS: no rashes or lesions noted GENERAL SKIN EXAM: no rashes or lesions noted TRAUMA: no lacerations or abrasions Course Vital Signs: Vital signs: Vital Signs Temperature 97.9 F 06/28/23 12:43 Pulse Rate 82 06/28/23 12:43 Respiratory Rate 17 06/28/23 12:43 Blood Pressure 141/97 06/28/23 12:43 Pulse Oximetry 97 06/28/23 12:43 Oxygen Delivery Me thod Room Air 06/28/23 12:43 MDM - Extremity (Nontraumatic) Medical Decision Making Patient here with complaints of right leg pain and concerned for DVT. Patient has left lower extremity pain some of which certainly could be related to postop knee revision surgery however he states he had an ultrasound performed at [facility] orthopedics yesterday and was told he had two superficial thrombus. I personally contacted the [facility] orthopedic office and got report of his ultrasound. He had DVT thrombus to the peroneal and posterior tibial veins. I spoke to the physician regulatory assistant there who stated they did not place patient on anticoagulation due to the location of the thrombus and low risk for propagation and the concern they had for postop bleeding. Patient is 3 weeks postop at this point. He has two known acute DVTs. He has a history of extensive DVTs and PEs. I think at this point it is in patient's best interest to be on anticoagulation. Did run case by patient's orthotics assistant Dr. Vargas who agrees and recommends placing patient on Eliquis. He has an appointment with patient tomorrow and will discuss further length of treatment. Discharge Plan Discharge Patient Disposition: Home Clinical Impression: Deep venous thrombosis (DVT) of left peroneal vein Qualifiers: Chronicity: acute Qualified Code(s): I82.452 - Acute embolism and thrombosis of left peroneal vein Deep vein thrombosis (DVT) of tibial vein of left lower extremity Qualifiers: Chronicity: acute Qualified Code(s): I82.442 - Acute embolism and thrombosis of left tibial vein Condition: Stable Prescriptions: New Eliquis 5 mg tablet 5 mg PO BID Qty: 74 0RF Rx Instructions: Take two tabs (10mg) BID x 7 days then one tab (5mg) PO BID thereafter No Action coenzyme Q10 [CoQ-10] 100 mg capsule 100 mg PO DAILY tamsulosin 0.4 mg capsule 0.4 mg PO BID Qty: 180 3RF atorvastatin 10 mg tablet 20 mg PO DAILY amlodipine 2.5 mg tablet 2.5 mg PO DAILY Qty: 90 0RF cholecalciferol (vitamin D3) 125 mcg (5,000 unit) capsule 125 mcg PO DAILY promethazine 25 mg suppository 25 mg [place] Q6H PRN (Reason: sedation) Qty: 6 1RF venlafaxine 37.5 mg tablet extended release 24hr 37.5 mg PO DAILY Qty: 1 0RF omeprazole 40 mg Capsule,Delayed Release(Dr/Ec) 40 mg PO DAILY Rx Instructions: [facility] ascorbic acid (vitamin C) [Vitamin C] 500 mg Tablet 500 mg PO DAILY acetaminophen [Tylenol Extra Strength] 500 mg Tablet 1,000 mg PO PRN Centrum Men 8 mg iron- 200 mcg-600 mcg Tablet 1 tab PO DAILY Slow Release Iron 1 tab PO DAILY clopidogrel 75 mg Tablet 75 mg PO DAILY Qty: 60 6RF Hold Instructions: Resume on 09/14/21. aspirin 81 mg Tablet,Delayed Release (Dr/Ec) 81 mg PO DAILY Qty: 60 3RF nitroglycerin 0.4 mg Tablet, Sublingual 0.4 mg sublingual Q5M PRN (Reason: Chest Pain) Qty: 30 0RF cholecalciferol (vitamin D3) [Vitamin D3] 50 mcg (2,000 unit) tablet See Rx Instructions .ROUTE .COMPLEX Rx Instructions: TAKE 1000 MG IN THE MORNING AND 2000 MG IN THE EVENING lisinopril 10 mg tablet 30 mg PO DAILY Rx Instructions: DOSE CHANGE hydrocodone-acetaminophen 5-325 mg tablet 1 tab PO Q8H PRN (Reason: pain) Qty: 15 0RF Discharge Orders: Discharge ED (Routine); Ordered 06/28/23 Ordered By: Sharonda Scruggs Referrals: Cristiane Torres MD [Primary Care Provider] - Patient Instructions: Apixaban (By mouth) (Eliquis), Deep Vein Thrombosis (DC) Activity Restrictions/Additional Instructions: As we discussed I spoke to Dr. Vargas who recommends placing you on Eliquis at this time. He will speak with you further at your scheduled appointment tomorrow in regards to length of treatment and whether he wants you to also stay on your Plavix and aspirin. As you have been told you need to return to the emergency department for complaints of chest pain, shortness of breath, difficulty breathing, or any other concerns you may have. Coding Level of Care Code ED Army Ranger for Emilia Ni
== END 2023-06-28 16:44 | disposition home or self-care (01) ==
PROVIDERS: Emergency Provider Physician Assistant; PCP Family Medicine
DX: I82.452 Acute embolism and thrombosis of left peroneal vein (principal); I82.442 Acute embolism and thrombosis of left tibial vein; Z79.82 Long term (current) use of aspirin; Z79.02 Long term (current) use of antithrombotics/antiplatelets; I25.10 Atherosclerotic heart disease of native coronary artery without angina pectoris; Z87.891 Personal history of nicotine dependence
CPT/HCPCS: 93971; 99284

== ENCOUNTER → 2023-06-29 09:23 | Outpatient (BNVA) | payer OTHER, SELFPAY | PROVIDERS: PCP Family Medicine; Visit Provider Nurse Practitioner Family | DX: I82.452 Acute embolism and thrombosis of left peroneal vein (principal); I82.442 Acute embolism and thrombosis of left tibial vein; Z79.01 Long term (current) use of anticoagulants; Z79.82 Long term (current) use of aspirin | CPT/HCPCS: 36415; 81241; 85230; 85240; 99214 ==

== ENCOUNTER → 2023-07-23 10:14 | Outpatient (BNVA) | payer OTHER, SELFPAY | PROVIDERS: PCP Family Medicine; Visit Provider Nurse Practitioner Family | DX: I82.4Z2 Acute embolism and thrombosis of unspecified deep veins of left distal lower extremity (principal); Z79.01 Long term (current) use of anticoagulants | CPT/HCPCS: 99213 ==

== ENCOUNTER 2023-08-06 12:50 | Outpatient (CLI) | payer OTHER, SELFPAY ==
--- NOTE | 2023-08-06 13:45 | USCV_ITS ---
Fidel Moreno Age: 68 Gender: M : 1955 Exam Date: 08/06/2023 13:12 Ordering Phys: Katerina Torres Technologist: CT Exam Location: [facility] [place]_ Indication: PROCEDURES: Venous duplex imaging was performed in only the left lower extremity. On the left side, the common femoral, superficial femoral, profunda femoral, popliteal, posterior tibial, greater saphenous veins, and the peroneal trunk were identified and interrogated in the standard fashion. These veins were found to be easily compressible with spontaneous blood flow. No evidence of insufficiency or thrombus noted. In addition, the posterior tibial and peroneal trunk were evaluated. CONCLUSIONS No evidence of left lower extremity DVT. George Montes MD (Electronically Signed) Final Date: 06 August 2023 17:01 S
== END 2023-08-06 12:51 | disposition home or self-care (01) ==
PROVIDERS: PCP Family Medicine; Visit Provider Nurse Practitioner Family
DX: I82.442 Acute embolism and thrombosis of left tibial vein (principal); I82.452 Acute embolism and thrombosis of left peroneal vein
CPT/HCPCS: 93971

== ENCOUNTER → 2023-08-30 13:25 | Outpatient (BNVA) | payer OTHER, SELFPAY | PROVIDERS: PCP Family Medicine; Visit Provider Internal Medicine | DX: I25.119 Atherosclerotic heart disease of native coronary artery with unspecified angina pectoris (principal); E11.9 Type 2 diabetes mellitus without complications; I10 Essential (primary) hypertension; I25.2 Old myocardial infarction; E78.5 Hyperlipidemia, unspecified; Z87.891 Personal history of nicotine dependence | CPT/HCPCS: 99214 ==

== ENCOUNTER 2023-11-06 11:13 | Emergency (ER) | payer OTHER, SELFPAY ==
[2023-11-06 11:23] VITALS: BP 179/94; PULSE 68; RESP 16; TEMP 36.6; O2SAT 97; BMI 5565.4
--- NOTE | 2023-11-06 13:27 | CT_ITS ---
WS: [id number] CT scan of the abdomen and pelvis without Oral and IV contrast. Additional two-dimensional coronal an d sagittal reconstruction was performed. 11/06/2023 Clinical Data: hematuria Comparison: CT abdomen pelvis, 05/23/2021 DLP: 1188.[address] scans at [facility] use at least one of these dose optimization techniques: automated e xposure control; mA and/or kV adjustment per patient size (includes targeted exams where dose is matc hed to clinical indication); or iterative reconstruction. Findings: The lower lungs show no nodules, masses or effusions. The liver, gallbladder, spleen, adrenal glands and pancreas are normal. There is a cyst in the left l obe of the liver unchanged. The kidneys show numerous cysts, calcifications and deformity of the parenchymal surface but there tariq s been no change. No obstructing calculi are seen. The renal pelves show no dilatation and no hydrour eter. There are no distal ureteral calculi. Abdominal aorta is normal in size. No appendicitis or diverticulitis is seen. The stomach, small bowel and colon are normal. The bladder is unremarkable. No inguinal hernia is seen. 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 Impression: 1. Multiple bilateral nonobstructive renal calculi. 2. Multiple bilateral renal cysts. 3. Negative for distal ureteral or bladder calculi.
[2023-11-06 13:51] LABS: Basophils # 0.1 10^3/uL (0.0-0.1); Basophils % 0.8 %; Eosinophils # 0.2 10^3/uL (0.0-0.8); Eosinophils % 3.1 %; Hematocrit 43.1 % (37-53); Lymphocytes # 1.9 10^3/uL (0.8-4.8); Lymphocytes % 29.4 %; Mean Corpuscular HGB Conc 32.7 g/dL (30-55); Mean Corpuscular Hemoglobin 30.7 pg (27-33); Mean Corpuscular Volume 93.7 fl (82-101); Mean Platelet Volume 9.5 fL (7.4-10.4); Monocytes # 0.5 10^3/uL (0.2-0.9); Monocytes % 7.9 %; Neutrophils # 3.75 10^3/uL (1.8-7.7); Neutrophils % 58.3 %; Nucleated Red Blood Cells % 0 %; Platelet Count 277 10^3/cmm (157-399); Red Cell Distribution Width 14.3 % (12.1-15.1); White Blood Count 6.43 10^3/uL (3.29-11.43)
[2023-11-06 14:12] LABS: Alanine Aminotransferase 23 U/L (0-41); Albumin Level 4.3 g/dL (3.5-5.2); Alkaline Phosphatase 65 U/L (40-130); Anion Gap 14.1 (5-19); Aspartate Amino Transferase 15 U/L (0-40); Blood Urea Nitrogen 14 mg/dL (8-23); Calcium 9.4 mg/dL (8.5-10.5); Carbon Dioxide 26 mmol/L (22-29); Chloride 102 mmol/L (98-107); Globulin 3.1 g/dL (1.3-4.6); Glomerular Filtration Rate 112.8 mL/min (90-130); Glucose 101 mg/dL (65-115); Lipase 41 U/L (13-60); Osmolality Calculated 287 mOsm/kg (285-295); Potassium 4.1 mmol/L (3.5-5.1); Sodium 138 mmol/L (136-145); Total Bilirubin 0.3 mg/dL (0.15-1.2); Total Protein 7.4 g/dL (6.6-8.7)
[2023-11-06 14:39] LABS: Add Urine Microscopic? YES; Bilirubin Urine Neg (Negative); Blood Urine 3+ (Negative); Glucose Urine UA Norm (Normal); Ketones Urine Negative (Negative); Leukocyte Esterase Urine Negative (Negative); Nitrate Urine Negative (Negative); Protein Urine Neg (Negative); Urine Appearance Clear (CLEAR); Urine Color Yellow (Yellow); Urobilinogen Urine Norm (Negative); pH Urine 6 (5-7)
[2023-11-06 14:51] LABS: Add Urine Culture? Yes; Bacteria Urine TRACE /hpf; RBC Urine 40-50 /hpf (0-2); Squamous Epithelial Cell Urine 0-4 /hpf (0-5); WBC Urine 0-4 /hpf (0-5)
--- NOTE | 2023-11-06 15:33 | W.ED.MALEGU ---
HPI - Male Genitourinary General: Chief complaint: Urogenital-Male Stated complaint: abd pain, blood in urine Time Seen by Provider: 11/06/23 15:32 Source: patient Mode of arrival: ambulatory History of Present Illness: 68-year-old male with a known history of nephrolithiasis is on anticoagulation. He has been having intermittent hematuria. Denies fever sweats chills no significant flank pain. Onset (ago): hour(s) Duration: intermittent Relieving factors: none Exacerbating factors: none Associated symptoms: Reports hematuria; Deny discharge, dysuria, fevers/chills, nausea, urinary incontinence, urinary retention or vomiting Review of Systems Const: Denies: fever(s) or chills Card: Denies: chest pain Resp: Denies: dyspnea GI: Denies: abdominal pain, nausea or vomiting : Reports: hematuria; Denies: dysuria, urinary frequency, urinary urgency or urinary incontinence Musc: Denies: neck pain or back pain Skin/Breast: Denies: rash PFSH ED PFSH: Medical History BPH loc w urin obs/LUTS Urethral stricture Penile pain Bilateral kidney stones Coronary artery disease Hematuria Resolved after stopping IV anticoagulation and IV antiplatelets Aftercare following knee joint replacement surgery Surgical History S/P ureteral stent placement Hx of neck surgery Hx of total knee replacement Hx of arthroscopic knee surgery History of ankle surgery Hx of foot surgery Family History Father , at age 56 CAD (coronary artery disease) Mother CAD (coronary artery disease) Grandfather CAD (coronary artery disease) Grandmother CAD (coronary artery disease) Cancer Denies family history of Diabetes Clotting disorder Dementia Chronic kidney disease (CKD) Suicide Anesthesia complication Bleeding disorder Lung disease Stroke Social History Smoking and tobacco/nicotine status: former use of tobacco/nicotine Alcohol intake: former Marital status: Current occupational status: retired Physical Exam Const: COMMON NORMALS: no acute distress GENERAL APPEARANCE: cooperative and comfortable ORIENTATION/CONSCIOUSNESS: Yes awake, Yes oriented to person, Yes oriented to place and Yes oriented to time HENMT: COMMON NORMALS: normocephalic, atraumatic and hearing grossly normal bilaterally HEAD & SCALP: normocephalic and atraumatic Resp: COMMON NORMALS: normal respiratory effort, No retractions, No use of accessory muscles and clear to auscultation bilaterally AUSCULTATION: clear to auscultation bilaterally Cardio: COMMON NORMALS: regular rate, regular rhythm and No murmurs present (Cardio) RATE: regular rate RHYTHM: regular rhythm GI: COMMON NORMALS: Soft to palpation and No hepatosplenomegaly present AUSCULTATION: Yes normoactive bowel sounds PALPATION: Yes Soft to palpation, No Tenderness to palpation present (GI), No Guarding due to palpation present (GI) and Yes No hepatosplenomegaly present Extremity: COMMON NORMALS: normal to inspection, capillary refill normal, no clubbing, cyanosis or edema, no calf tenderness and no pedal edema Neuro: SENSORIUM/ORIENTATION: Yes oriented to person, Yes oriented to place and Yes oriented to time Skin: COMMON NORMALS: no rashes or lesions noted GENERAL SKIN EXAM: no rashes or lesions noted Course Vital Signs: Vital signs: Vital Signs Temperature 97.8 F 11/06/23 11:23 Pulse Rate 68 11/06/23 11:23 Respiratory Rate 16 11/06/23 11:23 Blood Pressure 179/94 11/06/23 11:23 Pulse Oximetry 97 11/06/23 11:23 Oxygen Delivery Me thod Room Air 11/06/23 11:23 MDM - Male Medical Decision Making Labs and imaging reviewed CT does not show any ureteral stones. White count normal will cover for possibility of infection until culture resulted follow-up with Dr. Richardson next week. Return as develops fever or further problems. Medical Records I reviewed the patient's medical records. Lab Data I reviewed the patient's lab results. 11/06/23 13:44 11/06/23 13:44 Laboratory Results WBC 6.43 10^3/uL (3.29-11.43) 11/06/23 13:44 RBC 4.60 10^6/uL (3.85-5.65) 11/06/23 13:44 Hgb 14.10 g/dL (11.27-16.99) 11/06/23 13:44 Hct 43.1 % (37-53) 11/06/23 13:44 MCV 93.7 fl (82-101) 11/06/23 13:44 MCH 30.7 pg (27-33) 11/06/23 13:44 MCHC 32.7 g/dL (30-55) 11/06/23 13:44 RDW 14.3 % (12.1-15.1) 11/06/23 13:44 Plt Count 277 10^3/cmm (157-399) 11/06/23 13:44 MPV 9.5 fL (7.4-10.4) 11/06/23 13:44 Neut % (Auto) 58.3 % 11/06/23 13:44 Lymph % (Auto) 29.4 % 11/06/23 13:44 [place] % (Auto) 7.9 % 11/06/23 13:44 Eos % (Auto) 3.1 % 11/06/23 13:44 Baso % (Auto) 0.8 % 11/06/23 13:44 Neut # (Auto) 3.75 10^3/uL (1.8-7.7) 11/06/23 13:44 Lymph # (Auto) 1.9 10^3/uL (0.8-4.8) 11/06/23 13:44 [place] # (Auto) 0.5 10^3/uL (0.2-0.9) 11/06/23 13:44 Eos # (Auto) 0.2 10^3/uL (0.0-0.8) 11/06/23 13:44 Baso # (Auto) 0.1 10^3/uL (0.0-0.1) 11/06/23 13:44 Nucleated RBC % (auto) 0 % 11/06/23 13:44 Nucleated RBCs # 0.0 /100WBC 11/06/23 13:44 Sodium 138 mmol/L (136-145) 11/06/23 13:44 Potassium 4.1 mmol/L (3.5-5.1) 11/06/23 13:44 Chloride 102 mmol/L (98-107) 11/06/23 13:44 Carbon Dioxide 26 mmol/L (22-29) 11/06/23 13:44 Anion Gap 14.1 (5-19) 11/06/23 13:44 BUN 14 mg/dL (8-23) 11/06/23 13:44 Creatinine 0.7 mg/dL (0.7-1.2) 11/06/23 13:44 GFR Calculation 112.8 mL/min (90-130) 11/06/23 13:44 Glucose 101 mg/dL (65-115) 11/06/23 13:44 Calculated Osmolality 287 mOsm/kg (285-295) 11/06/23 13:44 Calcium 9.4 mg/dL (8.5-10.5) 11/06/23 13:44 Total Bilirubin 0.3 mg/dL (0.15-1.2) 11/06/23 13:44 AST 15 U/L (0-40) 11/06/23 13:44 ALT 23 U/L (0-41) 11/06/23 13:44 Alkaline Phosphatase 65 U/L (40-130) 11/06/23 13:44 Total Protein 7.4 g/dL (6.6-8.7) 11/06/23 13:44 Albumin 4.3 g/dL (3.5-5.2) 11/06/23 13:44 Globulin 3.1 g/dL (1.3-4.6) 11/06/23 13:44 Lipase 41 U/L (13-60) 11/06/23 13:44 Urine Color Yellow (Yellow) 11/06/23 11:15 Urine Appearance Clear (CLEAR) 11/06/23 11:15 Urine pH 6 (5-7) 11/06/23 11:15 Ur Specific [place] 1.010 (1.005-1.030) 11/06/23 11:15 Urine Protein Neg (Negative) 11/06/23 11:15 Urine Glucose (UA) Norm (Normal) 11/06/23 11:15 Urine Ketones Negative (Negative) 11/06/23 11:15 Urine Blood 3+ (Negative) H 11/06/23 11:15 Urine Nitrate Negative (Negative) 11/06/23 11:15 Urine Bilirubin Neg (Negative) 11/06/23 11:15 Urine Urobilinogen Norm mg/dL (Negative) 11/06/23 11:15 Ur Leukocyte Esterase Negative (Negative) 11/06/23 11:15 Urine RBC 40-50 /hpf (0-2) H 11/06/23 11:15 Urine WBC 0-4 /hpf (0-5) H 11/06/23 11:15 Ur Squamous Epith Cells 0-4 /hpf (0-5) H 11/06/23 11:15 Amorphous Sediment Not Reportable 11/06/23 11:15 Urine Bacteria Trace /hpf (NONE) 11/06/23 11:15 All radiology interpretation(s) finalized by discharge Discharge Plan Discharge Patient Disposition: Home Clinical Impression: Hematuria, Bilateral kidney stones, 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 Condition: Stable Prescriptions: No Action coenzyme Q10 [CoQ-10] 100 mg capsule 100 mg PO DAILY tamsulosin 0.4 mg capsule 0.4 mg PO BID Qty: 180 3RF prednisone 5 mg tablet 5 mg PO DAILY hydromorphone [Dilaudid] 2 mg tablet 2 mg PO Q6H cyclobenzaprine 5 mg tablet 5 mg PO TID PRN atorvastatin 10 mg tablet 20 mg PO DAILY tramadol 50 mg tablet 50 mg PO Q6H PRN oxycodone 5 mg capsule 5 mg PO Q4H PRN tizanidine 4 mg capsule 4 mg PO Q6H PRN cholecalciferol (vitamin D3) 125 mcg (5,000 unit) capsule 125 mcg PO DAILY rivaroxaban 20 mg tablet 20 mg PO DAILY Rx Instructions: must administer with evening meal venlafaxine 37.5 mg tablet extended release 24hr 37.5 mg PO DAILY Qty: 1 0RF amlodipine 2.5 mg tablet 2.5 mg PO DAILY Qty: 90 3RF omeprazole 40 mg Capsule,Delayed Release(Dr/Ec) 40 mg PO DAILY Rx Instructions: [facility] ascorbic acid (vitamin C) [Vitamin C] 500 mg Tablet 500 mg PO DAILY acetaminophen [Tylenol Extra Strength] 500 mg Tablet 1,000 mg PO PRN Centrum Men 8 mg iron- 200 mcg-600 mcg Tablet 1 tab PO DAILY Slow Release Iron 1 tab PO DAILY clopidogrel 75 mg Tablet 75 mg PO DAILY Qty: 60 6RF Hold Instructions: Resume on 09/09/21. aspirin 81 mg Tablet,Delayed Release (Dr/Ec) 81 mg PO DAILY Qty: 60 3RF nitroglycerin 0.4 mg Tablet, Sublingual 0.4 mg sublingual Q5M PRN (Reason: Chest Pain) Qty: 30 0RF cholecalciferol (vitamin D3) [Vitamin D3] 50 mcg (2,000 unit) tablet See Rx Instructions .ROUTE .COMPLEX Rx Instructions: TAKE 1000 MG IN THE MORNING AND 2000 MG IN THE EVENING lisinopril 10 mg tablet 30 mg PO DAILY Rx Instructions: DOSE CHANGE Discharge Orders: Discharge ED (Routine); Ordered 11/06/23 Ordered By: Mauricio Walker Referrals: Cristiane Torres MD [Primary Care Provider] - Discharge Diet: Usual diet Discharge Activity: Resume usual activity Patient Instructions: Opioid Safety, Pain Management Activity Restrictions/Additional Instructions: Thank you for choosing [facility] for your healthcare needs today. Please realize this is an emergency room and that we are providing you with a medical screening exam and this may not be complete and all inclusive of all the testing and or work up that you may need to determine your ailment or severity of your illness. It is very important that you follow up as instructed or that you return to the Emergency Department should you have concerns or if your condition changes or worsens in any way. You were seen today for evaluation for hematuria (blood in the urine). You have nonobstructing renal stones that have not engage the ureter. CT was otherwise negative. Kidney function and hemoglobin were normal. Recommend you start antibiotics until the culture is resulted. Contact your urologist for further follow-up. If you have uncontrolled pain, fever, or inability to urinate contact your primary care doctor, urologist or return to the nearest emergency room Coding Level of Care Code ED Director Of Digital Technology for Emilia Ni
== END 2023-11-06 16:22 | disposition home or self-care (01) ==
PROVIDERS: Physician Assistant; Emergency Provider Family Medicine; PCP Family Medicine
DX: R31.9 Hematuria, unspecified (principal); N20.0 Calculus of kidney; Z79.01 Long term (current) use of anticoagulants; Z79.02 Long term (current) use of antithrombotics/antiplatelets; Z79.82 Long term (current) use of aspirin; Z87.891 Personal history of nicotine dependence; I25.10 Atherosclerotic heart disease of native coronary artery without angina pectoris
CPT/HCPCS: 74176; 80053; 81001; 83690; 85025; 87086; 99284

== ENCOUNTER 2024-02-17 10:38 | Emergency (ER) | payer OTHER, MEDICARE, SELFPAY ==
--- NOTE | 2024-02-17 10:41 | XRR_ITS ---
PROCEDURE INFORMATION: Exam: XR Chest Exam date and time: 02/17/2024 10:49 AM Age: 68 years old Clinical indication: Shortness of breath; Patient HX: SOB; Fatigue; Weakness; Intermittent chest pain; HX pe TECHNIQUE: Imaging protocol: Radiologic exam of the chest. Views: 1 view. COMPARISON: No relevant prior studies available. FINDINGS: Lungs: Unremarkable. No consolidation. Pleural spaces: Unremarkable. No pleural effusion. No pneumothorax. Heart/Mediastinum: Unremarkable. No cardiomegaly. Bones/joints: Partially visualized cervical fusion prosthesis. XR/XR chest 1V 48090 IMPRESSION: 1. No focal consolidations. 2. No peripheral wedge-shaped opacities.
--- NOTE | 2024-02-17 10:42 | ECG_ITS ---
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 Measurements Intervals [place] Rate: 62 P: 33 CT: 182 QRS: -5 QRSD: 94 T: 61 QT: 399 QTc: 408 Interpretive Statements SINUS RHYTHM Compared to ECG 07/19/2020 20:49:55 Sinus bradycardia no longer present Electronically Signed On 02-17-2024 20:50:44 CDT by Abigail Kemp M.D. [email or web address] [email or web address] health [email or web address] [email or web address]/store/[id number] [email or web address]
[2024-02-17 10:43] VITALS: BP 207/79; PULSE 65; RESP 16; TEMP 36.9; O2SAT 97; BMI 38.6
--- NOTE | 2024-02-17 11:13 | ED_ITS ---
HPI - SOB/Dyspnea 2 General: Chief Complaint: Shortness of Breath/Dyspnea Stated Complaint: sob, right side chest pain, fatigue Time Seen by Provider: 02/17/24 10:49 Source: patient Mode of arrival: ambulatory History of Present Illness: HPI Narrative: 68-year-old male presents emergency room complaining of shortness of breath right-sided chest pain and fatigue. Pain worse when he palpates the right side of his chest at the level of the nipple. He has a history of factor V Leiden deficiency he is currently on Xarelto. He has not missed any doses he does states that he is active he exercises an hour and a half each morning this does not elicit his chest pain. MD elicited complaint: shortness of breath Exacerbating factors: nothing Relieving factors: nothing Associated symptoms: Reports chest pain; Deny abdominal pain, chest congestion, cough, diaphoresis, dizziness, extremity pain, fever(s), hemoptysis, lightheadedness, myalgias, nausea, orthopnea, palpitations, paresthesias, polydipsia, polyuria, rash, sense of impending doom, syncope or vomiting Treatment prior to arrival: none Review of Systems 2 Const: Denies: fever(s), chills or diaphoresis Card: Reports: chest pain; Denies: palpitations, lightheadedness, syncope or orthopnea Resp: Denies: dyspnea, productive cough, non-productive cough, hemoptysis or chest congestion GI: Denies: abdominal pain, nausea or vomiting : Denies: dysuria, urinary frequency or urinary urgency Musc: Denies: neck pain, back pain or extremity pain Skin/Breast: Denies: rash Neuro: Denies: dizziness Endo: Denies: polyuria or polydipsia PFSH ED 2 PFSH: Medical History BPH loc w urin obs/LUTS Urethral stricture Penile pain Bilateral kidney stones Coronary artery disease Hematuria Resolved after stopping IV anticoagulation and IV antiplatelets Aftercare following knee joint replacement surgery Surgical History S/P ureteral stent placement Hx of neck surgery Hx of total knee replacement Hx of arthroscopic knee surgery History of ankle surgery Hx of foot surgery Family History Father , at age 56 CAD (coronary artery disease) Mother CAD (coronary artery disease) Grandfather CAD (coronary artery disease) Grandmother CAD (coronary artery disease) Cancer Denies family history of Diabetes Clotting disorder Dementia Chronic kidney disease (CKD) Suicide Anesthesia complication Bleeding disorder Lung disease Stroke Social History Smoking and tobacco/nicotine status: former use of tobacco/nicotine Alcohol intake: former Marital status: Current occupational status: retired Physical Exam 2 Const: COMMON NORMALS: no acute distress GENERAL APPEARANCE: cooperative and comfortable ORIENTATION/CONSCIOUSNESS: Yes awake, Yes oriented to person, Yes oriented to place and Yes oriented to time HENMT: COMMON NORMALS: normocephalic, atraumatic and hearing grossly normal bilaterally HEAD & SCALP: normocephalic and atraumatic Resp: COMMON NORMALS: normal respiratory effort, No retractions, No use of accessory muscles and clear to auscultation bilaterally AUSCULTATION: clear to auscultation bilaterally Cardio: COMMON NORMALS: regular rate, regular rhythm and No murmurs present (Cardio) RATE: regular rate RHYTHM: regular rhythm GI: COMMON NORMALS: Soft to palpation and No hepatosplenomegaly present A USCULTATION: Yes normoactive bowel sounds PALPATION: Yes Soft to palpation, No Tenderness to palpation present (GI), No Guarding due to palpation present (GI) and Yes No hepatosplenomegaly present Extremity: COMMON NORMALS: normal to inspection, capillary refill normal, no clubbing, cyanosis or edema, no calf tenderness and no pedal edema Neuro: SENSORIUM/ORIENTATION: Yes oriented to person, Yes oriented to place and Yes oriented to time Skin: COMMON NORMALS: no rashes or lesions noted GENERAL SKIN EXAM: no rashes or lesions noted Course 2 Vital Signs: Vital signs: Vital Signs Temperature 98.4 F 02/17/24 10:43 Pulse Rate 60 02/17/24 12:54 Respiratory Rate 18 02/17/24 14:11 Blood Pressure 153/79 02/17/24 12:54 Pulse Oximetry 98 02/17/24 14:11 Oxygen Delivery Me thod Room Air 02/17/24 14:11 MDM - SOB/Dyspnea Medical Decision Making No acute finding pain continues to be reproducible palpation on the right chest. D-dimer was elevated but CTA chest is negative. Troponins are negative EKG does not show any acute ST changes. Will discharge patient home continue current medications follow-up with cardiology next week return if has further problems Medical Records I reviewed the patient's medical records. Lab Data I reviewed the patient's lab results. 02/17/24 11:50 02/17/24 11:50 Labs/Radiology: Radiology Impressions Chest X-Ray 02/17/24 10:41 IMPRESSION: 1. No focal consolidations. 2. No peripheral wedge-shaped opacities. Chest CTA 02/17/24 12:28 IMPRESSION: 1. No evidence of PE or acute aortic abnormality. 2. Mild aneurysmal dilatation of the thoracic aorta. Laboratory Results WBC 5.85 10^3/uL (3.29-11.43) 02/17/24 11:50 RBC 4.48 10^6/uL (3.85-5.65) 02/17/24 11:50 Hgb 13.90 g/dL (11.27-16.99) 02/17/24 11:50 Hct 42.4 % (37-53) 02/17/24 11:50 MCV 94.6 fl (82-101) 02/17/24 11:50 MCH 31.0 pg (27-33) 02/17/24 11:50 MCHC 32.8 g/dL (30-55) 02/17/24 11:50 RDW 13.5 % (12.1-15.1) 02/17/24 11:50 Plt Count 270 10^3/cmm (157-399) 02/17/24 11:50 MPV 9.7 fL (7.4-10.4) 02/17/24 11:50 Neut % (Auto) 58.8 % 02/17/24 11:50 Lymph % (Auto) 29.7 % 02/17/24 11:50 [place] % (Auto) 7.4 % 02/17/24 11:50 Eos % (Auto) 3.1 % 02/17/24 11:50 Baso % (Auto) 0.7 % 02/17/24 11:50 Neut # (Auto) 3.44 10^3/uL (1.8-7.7) 02/17/24 11:50 Lymph # (Auto) 1.7 10^3/uL (0.8-4.8) 02/17/24 11:50 [place] # (Auto) 0.4 10^3/uL (0.2-0.9) 02/17/24 11:50 Eos # (Auto) 0.2 10^3/uL (0.0-0.8) 02/17/24 11:50 Baso # (Auto) 0.0 10^3/uL (0.0-0.1) 02/17/24 11:50 Nucleated RBC % (auto) 0 % 02/17/24 11:50 Nucleated RBCs # 0.0 /100WBC 02/17/24 11:50 D-Dimer 1.46 ug/mLFEU (0-0.59) H 02/17/24 11:50 Sodium 138 mmol/L (136-145) 02/17/24 11:50 Potassium 4.3 mmol/L (3.5-5.1) 02/17/24 11:50 Chloride 102 mmol/L (98-107) 02/17/24 11:50 Carbon Dioxide 24 mmol/L (22-29) 02/17/24 11:50 Anion Gap 16.3 (5-19) 02/17/24 11:50 BUN 13 mg/dL (8-23) 02/17/24 11:50 Creatinine 0.6 mg/dL (0.7-1.2) L 02/17/24 11:50 GFR Calculation 134.8 mL/min (90-130) H 02/17/24 11:50 Glucose 144 mg/dL (65-115) H 02/17/24 11:50 Calculated Osmolality 289 mOsm/kg (285-295) 02/17/24 11:50 Lactic Acid 2.1 mmol/L (0.5-2.2) 02/17/24 11:50 Calcium 9.6 mg/dL (8.5-10.5) 02/17/24 11:50 Total Bilirubin 0.3 mg/dL (0.15-1.2) 02/17/24 11:50 AST 16 U/L (0-40) 02/17/24 11:50 ALT 21 U/L (0-41) 02/17/24 11:50 Alkaline Phosphatase 61 U/L (40-130) 02/17/24 11:50 Troponin T Baseline 9 ng/L (0-15) 02/17/24 11:50 C-Reactive Protein 3.1 mg/L (0.0-4.9) 02/17/24 11:50 NT-Pro-B Natriuret Pep < 36 pg/mL (0-125) 02/17/24 11:50 Total Protein 7.3 g/dL (6.6-8.7) 02/17/24 11:50 Albumin 4.4 g/dL (3.5-5.2) 02/17/24 11:50 Globulin 2.9 g/dL (1.3-4.6) 02/17/24 11:50 Procalcitonin 0.03 ng/mL (0-0.5) 02/17/24 11:50 Urine Color Yellow (Yellow) 02/17/24 11:09 Urine Appearance Clear (CLEAR) 02/17/24 11:09 Urine pH 5 (5-7) 02/17/24 11:09 Ur Specific [place] 1.010 (1.005-1.030) 02/17/24 11:09 Urine Protein Neg (Negative) 02/17/24 11:09 Urine Glucose (UA) Norm (Normal) 02/17/24 11:09 Urine Ketones Negative (Negative) 02/17/24 11:09 Urine Blood 2+ (Negative) H 02/17/24 11:09 Urine Nitrate Negative (Negative) 02/17/24 11:09 Urine Bilirubin Neg (Negative) 02/17/24 11:09 Urine Urobilinogen Norm mg/dL (Negative) 02/17/24 11:09 Ur Leukocyte Esterase Negative (Negative) 02/17/24 11:09 Urine RBC Rare /hpf (0-2) 02/17/24 11:09 Urine WBC None /hpf (0-5) 02/17/24 11:09 Ur Squamous Epith Cells 0-4 /hpf (0-5) H 02/17/24 11:09 Amorphous Sediment Not Reportable 02/17/24 11:09 Urine Bacteria Trace /hpf (NONE) 02/17/24 11:09 Coronavirus 229E (PCR) Not detected (NOT DETECT) 02/17/24 11:18 Influenza Type A Ag negative (Negative) 02/17/24 11:18 Influenza Type B Ag negative (Negative) 02/17/24 11:18 SARS-CoV-2 (PCR) Not detected (NOT DETECT) 02/17/24 11:18 All radiology interpretation(s) finalized by discharge Discharge Plan Discharge Patient Disposition: Home Clinical Impression: Musculoskeletal chest pain, Chronic anticoagulation, History of [place] (myocardial infarction) Condition: Stable Prescriptions: No Action coenzyme Q10 [CoQ-10] 100 mg capsule 100 mg PO DAILY tamsulosin 0.4 mg capsule 0.4 mg PO BID Qty: 180 3RF prednisone 5 mg tablet 5 mg PO DAILY hydromorphone [Dilaudid] 2 mg tablet 2 mg PO Q6H cyclobenzaprine 5 mg tablet 5 mg PO TID PRN atorvastatin 10 mg tablet 20 mg PO DAILY tramadol 50 mg tablet 50 mg PO Q6H PRN oxycodone 5 mg capsule 5 mg PO Q4H PRN tizanidine 4 mg capsule 4 mg PO Q6H PRN cholecalciferol (vitamin D3) 125 mcg (5,000 unit) capsule 125 mcg PO DAILY rivaroxaban 20 mg tablet 20 mg PO DAILY Rx Instructions: must administer with evening meal venlafaxine 37.5 mg tablet extended release 24hr 37.5 mg PO DAILY Qty: 1 0RF amlodipine 5 mg tablet 5 mg PO DAILY Qty: 90 3RF omeprazole 40 mg Capsule,Delayed Release(Dr/Ec) 40 mg PO DAILY Rx Instructions: [facility] ascorbic acid (vitamin C) [Vitamin C] 500 mg Tablet 500 mg PO DAILY acetaminophen [Tylenol Extra Strength] 500 mg Tablet 1,000 mg PO PRN Centrum Men 8 mg iron- 200 mcg-600 mcg Tablet 1 tab PO DAILY Slow Release Iron 1 tab PO DAILY clopidogrel 75 mg Tablet 75 mg PO DAILY Qty: 60 6RF Hold Instructions: Resume on 09/14/21. aspirin 81 mg Tablet,Delayed Release (Dr/Ec) 81 mg PO DAILY Qty: 60 3RF nitroglycerin 0.4 mg Tablet, Sublingual 0.4 mg sublingual Q5M PRN (Reason: Chest Pain) Qty: 30 0RF cholecalciferol (vitamin D3) [Vitamin D3] 50 mcg (2,000 unit) tablet See Rx Instructions .ROUTE .COMPLEX Rx Instructions: TAKE 1000 MG IN THE MORNING AND 2000 MG IN THE EVENING lisinopril 10 mg tablet 30 mg PO DAILY Rx Instructions: DOSE CHANGE Discharge Orders: Discharge ED (Routine); Ordered 02/17/24 Ordered By: Mauricio Walker Referrals: Cristiane Torres MD [Primary Care Provider] - Patient Instructions: Opioid Safety, Pain Management Activity Restrictions/Additional Instructions: Thank you for choosing [facility] for your healthcare needs today. Please realize this is an emergency room and that we are providing you with a medical screening exam and this may not be complete and all inclusive of all the testing and or work up that you may need to determine your ailment or severity of your illness. It is very important that you follow up as instructed or that you return to the Emergency Department should you have concerns or if your condition changes or worsens in any way. You are seen today with chest pain your cardiac enzymes were negative EKG did not show any acute changes and the scan of your chest did not show any blood clot. Your pain is reproducible with palpation on the anterior chest wall. Recommend that you follow-up with your thermostat maker in this coming week continue all previously prescribed medications return if you have further problems. Coding Level of Care Code ED Humanities And Languages Professor for Emilia Ni
[2024-02-17 11:44] LABS: Bilirubin Urine Neg (Negative); Blood Urine 2+ (Negative); Glucose Urine UA Norm (Normal); Ketones Urine Negative (Negative); Leukocyte Esterase Urine Negative (Negative); Nitrate Urine Negative (Negative); Protein Urine Neg (Negative); Urine Appearance Clear (CLEAR); Urine Color Yellow (Yellow); Urobilinogen Urine Norm (Negative); pH Urine 5 (5-7)
[2024-02-17 11:45] LABS: Add Urine Culture? No; Bacteria Urine TRACE /hpf; RBC Urine RARE /hpf (0-2); Squamous Epithelial Cell Urine 0-4 /hpf (0-5)
[2024-02-17 11:48] VITALS: BP 152/93; PULSE 65; RESP 20
[2024-02-17 11:52] LABS: Influenza A by IFA negative (Negative); Influenza B by IFA negative (Negative)
[2024-02-17 12:02] LABS: Basophils % 0.7 %; Eosinophils # 0.2 10^3/uL (0.0-0.8); Eosinophils % 3.1 %; Hematocrit 42.4 % (37-53); Lymphocytes # 1.7 10^3/uL (0.8-4.8); Lymphocytes % 29.7 %; Mean Corpuscular HGB Conc 32.8 g/dL (30-55); Mean Corpuscular Volume 94.6 fl (82-101); Mean Platelet Volume 9.7 fL (7.4-10.4); Monocytes # 0.4 10^3/uL (0.2-0.9); Monocytes % 7.4 %; Neutrophils # 3.44 10^3/uL (1.8-7.7); Neutrophils % 58.8 %; Nucleated Red Blood Cells % 0 %; Platelet Count 270 10^3/cmm (157-399); Red Blood Count 4.48 10^6/uL (3.85-5.65); Red Cell Distribution Width 13.5 % (12.1-15.1); White Blood Count 5.85 10^3/uL (3.29-11.43)
[2024-02-17 12:19] LABS: D Dimer 1.46 ug/mLFEU (0-0.59)
[2024-02-17 12:25] LABS: Lactic Sepsis W/Reflex 2.1 mmol/L (0.5-2.2)
[2024-02-17 12:26] LABS: Troponin(5th) Baseline 9 ng/L (0-15)
--- NOTE | 2024-02-17 12:28 | CTR_ITS ---
PROCEDURE INFORMATION: Exam: CTA Chest With Contrast Exam date and time: 02/17/2024 1:32 PM Age: 68 years old Clinical indication: Dyspnea; Prior surgery; Surgery date: 6+ months; Surgery type: Heart stents; Patient HX: HX of pulmonary embolis 12 yrs ago; Additional info: Factor 5 deficiency TECHNIQUE: Imaging protocol: Computed tomographic angiography of the chest with contrast. Exam focused on the arteries. 3D rendering (Not supervised by radiologist): MIP and/or 3D reconstructed images were created by the technologist. Radiation optimization: All CT scans at this facility use at least one of these dose optimization techniques: automated exposure control; mA and/or kV adjustment per patient size (includes targeted exams where dose is matched to clinical indication); or iterative reconstruction. Contrast material: OMNI 350; Contrast volume: 76 ml; Contrast route: INTRAVENOUS (IV); COMPARISON: CR (CHEST, ) 02/17/2024 10:49 AM RADIATION DOSE METRICS: Total DLP (mGy-cm): 549.67 FINDINGS: Pulmonary arteries: No evidence of pulmonary thromboembolism. Aorta: No evidence of dissection of the thoracic aorta. Mild aneurysmal dilatation of the ascending and descending thoracic aorta to approximately 4.1 and 3.2 cm, respectively. Thyroid: Grossly unremarkable. Lungs: No focal consolidation. No evidence of pneumonia. Pleural spaces: No evidence of pleural effusion. No pneumothorax. Heart: No cardiomegaly. No pericardial effusion. Mediastinal space: No evidence of mediastinal mass, fluid collection or hematoma. Lymph nodes: No mediastinal or hilar adenopathy. Bones/joints: No evidence of acute fracture or aggressive osseous lesion. Soft tissues: No evidence of fluid collection or hematoma in the superficial soft tissues. Other findings: No evidence of acute abnormality in the upper abdomen. CT/CT angio chest PE protcl [id number] IMPRESSION: 1. No evidence of PE or acute aortic abnormality. 2. Mild aneurysmal dilatation of the thoracic aorta.
[2024-02-17 12:31] LABS: NT Pro B Type Natriuretic Pept < 36 pg/mL (0-125); Procalcitonin 0.03 ng/mL (0-0.5)
[2024-02-17 12:42] LABS: Alanine Aminotransferase 21 U/L (0-41); Albumin Level 4.4 g/dL (3.5-5.2); Alkaline Phosphatase 61 U/L (40-130); Anion Gap 16.3 (5-19); Aspartate Amino Transferase 16 U/L (0-40); Blood Urea Nitrogen 13 mg/dL (8-23); C Reactive Protein 3.1 mg/L (0.0-4.9); Calcium 9.6 mg/dL (8.5-10.5); Carbon Dioxide 24 mmol/L (22-29); Chloride 102 mmol/L (98-107); Globulin 2.9 g/dL (1.3-4.6); Glomerular Filtration Rate 134.8 mL/min (90-130); Glucose 144 mg/dL (65-115); Osmolality Calculated 289 mOsm/kg (285-295); Potassium 4.3 mmol/L (3.5-5.1); Sodium 138 mmol/L (136-145); Total Bilirubin 0.3 mg/dL (0.15-1.2); Total Protein 7.3 g/dL (6.6-8.7)
--- NOTE | 2024-02-17 12:48 | ECG_ITS ---
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 Measurements Intervals [place] Rate: 55 P: 70 SD: 179 QRS: 53 QRSD: 103 T: 81 QT: 414 QTc: 399 Interpretive Statements SINUS BRADYCARDIA Compared to ECG 02/17/2024 11:21:23 Sinus rhythm no longer present Electronically Signed On 02-17-2024 21:00:53 CDT by Abigail Kemp M.D. [id number]
[2024-02-17 12:54] VITALS: BP 153/79; PULSE 60; RESP 18; O2SAT 97
[2024-02-17 13:18] LABS: Creatinine Clr Calc Pharmacy 126.2491
[2024-02-17 13:20] LABS: Adenovirus Not Detected (NOT DETECT); Chlamydia Pneumoniae Not Detected (NOT DETECT); Coronavirus 229E,HKU1,NL63,OC4 Not Detected (NOT DETECT); Human Metapneumovirus Not Detected (NOT DETECT); Human Rhinovirus/Enterovirus Not Detected (NOT DETECT); Influenza A Not Detected (NOT DETECT); Influenza A H1 Not Detected (NOT DETECT); Influenza A H1-2009 Not Detected (NOT DETECT); Influenza A H3 Not Detected (NOT DETECT); Influenza B Not Detected (NOT DETECT); Mycoplasma Pneumoniae Not Detected (NOT DETECT); Parainfluenza Virus Type 1 Not Detected (NOT DETECT); Parainfluenza Virus Type 2 Not Detected (NOT DETECT); Parainfluenza Virus Type 3 Not Detected (NOT DETECT); Parainfluenza Virus Type 4 Not Detected (NOT DETECT); Respiratory Syncytial Virus A Not Detected (NOT DETECT); Respiratory Syncytial Virus B Not Detected (NOT DETECT); SARS-COV-2 Not Detected (NOT DETECT)
[2024-02-17] MEDS: iohexol 350 mg/mL 500 mL Btl (per mL) IV (13:32)
[2024-02-17 13:47] LABS: Reflex Lactate Order REFLEX LACTIC ORDERD
[2024-02-17 14:11] VITALS: RESP 18; O2SAT 98
[2024-02-17 14:45] LABS: Lactic Acid level (Lactate) 1.2 mmol/L (0.5-2.2); Troponin 5 2HR 8.69 ng/L (0-15)
[2024-02-17 14:54] LABS: Troponin 5 2HR Delta -0.31 ABS# (0-10)
== END 2024-02-17 15:11 | disposition home or self-care (01) ==
PROVIDERS: Emergency Medicine; Emergency Provider Family Medicine; PCP Family Medicine
DX: R07.89 Other chest pain (principal); Z79.01 Long term (current) use of anticoagulants; I25.2 Old myocardial infarction; Z79.02 Long term (current) use of antithrombotics/antiplatelets; Z79.82 Long term (current) use of aspirin; Z11.52 Encounter for screening for COVID-19; Z87.891 Personal history of nicotine dependence; I25.10 Atherosclerotic heart disease of native coronary artery without angina pectoris
CPT/HCPCS: 36415; 71045; 71275; 80053; 81001; 83605; 83880; 84145; 84484; 85025; 85378; 86140; 87040; 87635; 87804; 93005; 99285; Q9967

== ENCOUNTER → 2024-02-28 10:42 | Outpatient (BNVA) | payer OTHER, SELFPAY | PROVIDERS: PCP Family Medicine; Visit Provider Nurse Practitioner Family | DX: I10 Essential (primary) hypertension (principal); I25.119 Atherosclerotic heart disease of native coronary artery with unspecified angina pectoris; Z79.01 Long term (current) use of anticoagulants; Z87.891 Personal history of nicotine dependence | CPT/HCPCS: 99214 ==

== ENCOUNTER 2024-03-13 09:04 | Outpatient (CLI) | payer OTHER, SELFPAY ==
[2024-03-13 09:57] LABS: Basophils % 0.6 %; Eosinophils # 0.4 10^3/uL (0.0-0.8); Eosinophils % 5.6 %; Hematocrit 43.1 % (37-53); Lymphocytes # 1.7 10^3/uL (0.8-4.8); Lymphocytes % 26.7 %; Mean Corpuscular HGB Conc 32.7 g/dL (30-55); Mean Corpuscular Hemoglobin 30.8 pg (27-33); Mean Corpuscular Volume 94.1 fl (82-101); Mean Platelet Volume 9.6 fL (7.4-10.4); Monocytes # 0.5 10^3/uL (0.2-0.9); Monocytes % 7.3 %; Neutrophils # 3.84 10^3/uL (1.8-7.7); Neutrophils % 59.2 %; Nucleated Red Blood Cells % 0 %; Platelet Count 282 10^3/cmm (157-399); Red Blood Count 4.58 10^6/uL (3.85-5.65); Red Cell Distribution Width 13.5 % (12.1-15.1); White Blood Count 6.48 10^3/uL (3.29-11.43)
[2024-03-13 10:11] LABS: Anion Gap 16.4 (5-19); Blood Urea Nitrogen 16 mg/dL (8-23); Calcium 9.3 mg/dL (8.5-10.5); Carbon Dioxide 24 mmol/L (22-29); Chloride 100 mmol/L (98-107); Glomerular Filtration Rate 96.7 mL/min (90-130); Glucose 110 mg/dL (65-115); Osmolality Calculated 284 mOsm/kg (285-295); Potassium 4.4 mmol/L (3.5-5.1); Sodium 136 mmol/L (136-145)
== END 2024-03-13 09:05 | disposition home or self-care (01) ==
LOC: LAB 09:04
PROVIDERS: PCP Family Medicine; Visit Provider Nurse Practitioner Family
DX: Z79.01 Long term (current) use of anticoagulants (principal)
CPT/HCPCS: 36415; 80048; 85025

== ENCOUNTER 2024-03-13 10:02 | Outpatient (CLI) | payer OTHER, SELFPAY ==
--- NOTE | 2024-03-13 12:45 | USCV_ITS ---
Fidel Moreno Age: 68 Gender: M : 1955 Exam Date: 03/13/2024 10:44 Ordering Phys: Katerina Torres Technologist: Exam Location: [facility] [place]_ Indication: hx of dvt factor five PROCEDURES: The venous duplex Doppler examination of both lower extremities was performed in the standard fashion. The following venous structures were evaluated: common femoral vein, profunda vein, proximal portion of the greater saphenous vein, superficial femoral vein, and the popliteal vein. In addition, the posterior tibial and peroneal trunk were evaluated. FINDINGS: Normal 2-D Doppler and augmentation and compressibility throughout the lower extremity venous structures. Additional imaging through the proximal calf veins also reveals no thrombus. Limited evaluation of the greater saphenous vein is patent with no thrombus. CONCLUSIONS No DVT bilateral lower extremities. Dr. Shweta Schultz DO (Electronically Signed) Final Date: 13 Mar 2024 13:01 S
== END 2024-03-13 10:03 | disposition home or self-care (01) ==
LOC: RAD 10:03
PROVIDERS: PCP Family Medicine; Visit Provider Nurse Practitioner Family
DX: Z86.718 Personal history of other venous thrombosis and embolism (principal)
CPT/HCPCS: 93970

== ENCOUNTER → 2024-05-16 08:56 | Outpatient (BNVA) | payer OTHER, SELFPAY | PROVIDERS: PCP Family Medicine; Visit Provider Nurse Practitioner Family | DX: I25.119 Atherosclerotic heart disease of native coronary artery with unspecified angina pectoris (principal); I82.409 Acute embolism and thrombosis of unspecified deep veins of unspecified lower extremity; Z87.891 Personal history of nicotine dependence | CPT/HCPCS: 99214 ==

== ENCOUNTER → 2024-08-14 08:55 | Outpatient (BNVA) | payer OTHER, SELFPAY | PROVIDERS: PCP Family Medicine; Visit Provider Nurse Practitioner Family | DX: I25.119 Atherosclerotic heart disease of native coronary artery with unspecified angina pectoris (principal); Z86.718 Personal history of other venous thrombosis and embolism; I25.2 Old myocardial infarction; I10 Essential (primary) hypertension; Z87.891 Personal history of nicotine dependence | CPT/HCPCS: 85378; 99214 ==

== ENCOUNTER 2024-08-15 12:01 | Outpatient (CLI) | payer OTHER, SELFPAY ==
[2024-08-15] MEDS: iohexol 350 mg/mL 500 mL Btl (per mL) IV (12:07)
--- NOTE | 2024-08-15 12:30 | CTR_ITS ---
PROCEDURE INFORMATION: Exam: CTA Chest With Contrast Exam date and time: 08/15/2024 12:26 PM Age: 69 years old Clinical indication: Abnormal findings; Abnormal diagnostic tests; Elevated d-dimer; Prior surgery; Surgery date: 6+ months; Surgery type: Cardiac stents; Patient HX: Elevated d dimer, factor 5, HX of dvt TECHNIQUE: Imaging protocol: Computed tomographic angiography of the chest with contrast. Exam focused on the arteries. 3D rendering (Not supervised by radiologist): MIP and/or 3D reconstructed images were created by the technologist. Radiation optimization: All CT scans at this facility use at least one of these dose optimization techniques: automated exposure control; mA and/or kV adjustment per patient size (includes targeted exams where dose is matched to clinical indication); or iterative reconstruction. Contrast material: OMNI 350; Contrast volume: 95 ml; Contrast route: INTRAVENOUS (IV); COMPARISON: CT angio chest PE prot [id number] 02/17/2024 1:32 PM RADIATION DOSE METRICS: Total DLP (mGy-cm): 532.91 FINDINGS: Pulmonary arteries: Normal. No pulmonary emboli. Aorta: Unremarkable. No aortic aneurysm. No aortic dissection. Lungs: Both lungs demonstrate diffuse interstitial coarsening which is felt to be chronic. No lung mass or infiltrate. Pleural spaces: Unremarkable. No pneumothorax. No pleural effusion. Heart: Mild cardiomegaly is noted. Lymph nodes: Unremarkable. No enlarged lymph nodes. Bones/joints: Unremarkable. No acute fracture. Soft tissues: Unremarkable. CT/CT angio chest PE prot [id number] IMPRESSION: 1. No acute findings. 2. Stable cardiomegaly with chronic lung changes
[2024-08-15 12:40] LABS: Blood Urea Nitrogen 12 mg/dL (8-23)
[2024-08-15 12:41] LABS: Glomerular Filtration Rate 96.4 mL/min (90-130)
== END 2024-08-15 12:02 | disposition home or self-care (01) ==
LOC: RAD 12:02
PROVIDERS: PCP Family Medicine; Visit Provider Nurse Practitioner Family
DX: I82.452 Acute embolism and thrombosis of left peroneal vein (principal); R79.89 Other specified abnormal findings of blood chemistry; I51.7 Cardiomegaly; J84.89 Other specified interstitial pulmonary diseases; Z95.9 Presence of cardiac and vascular implant and graft, unspecified
CPT/HCPCS: 71275; 82565; 84520

== ENCOUNTER 2024-08-19 06:12 | Outpatient (CLI) | payer OTHER, SELFPAY ==
--- NOTE | 2024-08-19 06:28 | ECG_ITS ---
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 Interpretive Statements PROCEDURE: At the baseline, the EKG revealed sinus bradycardia with a frequent PVCs. Nonspecific T wave changes. The baseline heart was 58 bpm with a blood pressue of 143/81 mm of Hg Lexiscan was infused over a period of 20 seconds. A total of 0.4 milligrams of Lexiscan was infused. The stress phase was continued for a total of 5 minutes. Heart rate at the end of the stress phase was 78 bpm with a blood pressure 146/79 mm of Hg. The EKG at the peak infusion revealed some nonspecific T wave changes. Sestamibi was injected 20 seconds after the Lexiscan infusion. Heart rate at the end of the recovery phase was 77 bpm with a blood pressure of 138/81 mm of Hg. CONCLUSION: 1. No significant EKG changes with the LexiScan infusion 2. No LexiScan induced chest pain or cardiac arrhythmia 3. Normal blood pressure and heart rate response 4. Sestamibi/sestamibi perfusion scan pending; see separate report. Lung unchanged pre/post procedure; Intraprocedure shortess of breath; Symptoms resoled by discharge Electronically Signed On 08-24-2024 19:26:25 CDT by Abigail Kemp M.D. [email or web address]
--- NOTE | 2024-08-19 06:28 | NMCV_ITS ---
NM leila perf SPECT r/s* [id number] Fidel Moreno Age: 69 Gender: M : 1955 Exam Date: 08/19/2024 07:08 Ordering Phys: Katerina Torres Technologist: CASSIUS Fletcher Exam Location: [facility] Indications: cp STRESS TEST Please see separate stress test report in [facility] for full findings IMAGE PROTOCOL Rest/Stress 1 Lexiscan Day Radiopharmaceutical Dose (mCi) Administration Site Administered by Rest: Tc-99m 10.9 IV Ju Richey, GEOLOGICAL TECHNICAL OFFICER Sestamibi Stress:Tc-99m 32.8 IV Ju Lopezgle, GEOLOGICAL TECHNICAL OFFICER Sestamibi Rest: 19-Aug-2024 60 Discovery 630 Stress: 19-Aug-2024 30 Discovery 630 0.4mg Lexiscan. Images obtained in supine and prone position. SPECT RESULTS Technical Quality: Good Raw Data Analysis: Normal Image Corrections: No attenuation or motion correction applied Summed Stress Score: 3 Summed Rest Score: 4 Summed Difference Score: 1 PERFUSION FINDINGS A small area of minimal to moderately decreased tracer uptake involving the mid and apical inferior wall segments. Some reversibility was noted in the mid inferior segment. FUNCTIONAL RESULTS (calculated via Gated SPECT) Stress Image LV EF (%): 58 Stress EDV (mL):142 TID: 1.22 Stress ESV (mL):59 FUNCTIONAL FINDINGS: Segmental wall motion analysis revealing no gross wall motion abnormalities IMPRESSIONS 1. Myocardial perfusion imaging revealing small to moderate area of minimal to moderately decreased tracer uptake involving the mid and apical inferior wall region with some reversibility suggesting myocardial scarring with a very small area of possible leon-infarction ischemia in the distribution of the right coronary artery. 2. Normal LV ejection fraction of 58%. 3. LV wall motion analysis revealing no gross wall motion abnormalities. 4. Mildly dilated LV cavity 5. Elevated transient ischemic dilatation ratio 1.22 also may suggest endocardial ischemia. No similar previous studies are available for comparison Dr Abigail Kemp MD [facility] (Electronically Signed) Final Date: 19 August 2024 21:54 S
[2024-08-19 08:14] VITALS: BMI 38.2
[2024-08-19] MEDS: regadenoson 0.4 Mg/5 ml Syringe IVP (08:14)
[2024-08-19 08:46] VITALS: BP 138/81; PULSE 76
== END 2024-08-19 06:13 | disposition home or self-care (01) ==
PROVIDERS: PCP Family Medicine; Visit Provider Nurse Practitioner Family
DX: I25.119 Atherosclerotic heart disease of native coronary artery with unspecified angina pectoris (principal); I25.2 Old myocardial infarction; R06.02 Shortness of breath; R94.39 Abnormal result of other cardiovascular function study
CPT/HCPCS: 36415; 78452; 93017; 96374; A9500; J2785

== ENCOUNTER → 2024-08-25 09:02 | Outpatient (BNVA) | payer OTHER, SELFPAY | PROVIDERS: PCP Family Medicine; Visit Provider Nurse Practitioner Family | DX: I25.10 Atherosclerotic heart disease of native coronary artery without angina pectoris (principal) | CPT/HCPCS: 99213 ==

== ENCOUNTER → 2024-09-18 10:22 | Outpatient (BNVA) | payer OTHER, SELFPAY | PROVIDERS: PCP Family Medicine; Visit Provider Nurse Practitioner Family | DX: I48.91 Unspecified atrial fibrillation (principal) | CPT/HCPCS: 93005; 99214 ==

== ENCOUNTER → 2024-10-09 08:48 | Outpatient (BNVA) | payer OTHER, SELFPAY | PROVIDERS: PCP Family Medicine; Visit Provider Nurse Practitioner Family | DX: I48.91 Unspecified atrial fibrillation (principal) | CPT/HCPCS: 93005; 99214 ==

== ENCOUNTER 2024-10-17 06:12 | Outpatient (CLI) | payer OTHER, SELFPAY ==
--- NOTE | 2024-10-17 06:45 | USCV_ITS ---
TiffanieFidel Age: 69 Gender: M : 1955 Exam Date: 10/17/2024 06:41 Ordering Phys: Katerina Torres Technologist: Ronal Muro Exam Location: [facility] [place]_ Indication: dvt PROCEDURES: Venous duplex imaging was performed in only the right lower extremity. The following venous structures were evaluated: common femoral vein, profunda vein, proximal portion of the greater saphenous vein, superficial femoral vein, and the popliteal vein. In addition, the posterior tibial and peroneal trunk were evaluated. Serial compression, augmentation maneuvers, and spectral Doppler flow evaluation were performed. FINDINGS: Normal 2-D Doppler and augmentation and compressibility throughout the lower extremity venous structures. Additional imaging through the proximal calf veins also reveals no thrombus. Limited evaluation of the greater saphenous vein is patent with no thrombus. CONCLUSIONS No DVT right lower extremity. Dr. Shweta Schultz DO (Electronically Signed) Final Date: 17 October 2024 09:22 S
== END 2024-10-17 06:13 | disposition home or self-care (01) ==
LOC: RAD 06:12
PROVIDERS: PCP Family Medicine; Visit Provider Nurse Practitioner Family
DX: I82.451 Acute embolism and thrombosis of right peroneal vein (principal)
CPT/HCPCS: 93971

== ENCOUNTER 2024-10-24 10:37 | Day surgery (SDC) | payer OTHER, SELFPAY ==
[2024-10-24] VITALS (8 sets, daily range): BP systolic 99–164; BP diastolic 62–117; PULSE 58–93; RESP 18; TEMP 36.6–36.8; O2SAT 95–99; BMI 38.2
--- NOTE | 2024-10-24 11:02 | ANES.PREANE2 ---
Pre-Anesthetic Assessment Height/Weight: Height 6 ft Preop Diagnosis: A-fib Operation Date: 10/24/24 12:00 Proposed Procedures p CHRISTINA(Not Applicable) - Erendira Sharma Cardioversion(Not Applicable) - Jose R Iraheta M.D Was Beta Maxwell taken within 24 hours: N/A Was Clonidine taken within 24 hours: N/A Social No alcohol and No tobacco Exam oriented x 3, clear to auscultation bilaterally and regular rate & rhythm Airway Submandibular: within normal limits Cervical ROM: within normal limits Mallampati: Class II Dentition: other (Edentulous) Anesthetic Plan ASA status: 3 Anesthesia: MAC Other: PONV with prior anesthetics NPO since yesterday History of A-fib with RVR CAD with a history of NC TERESITA on CPAP Patient admits to getting SOB with long distances Patient recently had a right TKA 6 weeks ago and has been doing well with his recovery Plan for MAC anesthetic Medications/Allergies Home Medications Medication Instructions Recorded Confirmed Last Taken Type omeprazole 40 mg capsule,delayed 40 mg PO DAILY 07/19/20 10/22/24 10/24/24 08:00 History release Slow Release Iron 1 tab PO DAILY 07/20/20 10/22/24 10/24/24 08:00 History acetaminophen 500 mg tablet 1,000 mg PO PRN 07/20/20 10/22/24 10/24/24 History (Tylenol Extra Strength) nitroglycerin 0.4 mg sublingual 0.4 mg sublingual Q5M PRN Chest 07/21/20 10/22/24 Unknown Rx tablet Pain #30 tabs coenzyme Q10 100 mg capsule 100 mg PO DAILY 08/27/20 10/22/24 10/24/24 08:00 History (CoQ-10) lisinopril 10 mg tablet 30 mg PO DAILY 05/23/21 10/22/24 10/24/24 08:00 History tamsulosin 0.4 mg capsule 0.4 mg PO BID #180 caps 12/27/21 10/22/24 10/24/24 08:00 Rx atorvastatin 10 mg tablet 20 mg PO DAILY 05/10/23 10/22/24 10/23/24 History venlafaxine 37.5 mg 37.5 mg PO DAILY #1 tab 05/16/23 10/22/24 10/24/24 08:00 Rx tablet,extended release 24 hr tizanidine 4 mg capsule 4 mg PO Q6H PRN Muscle Spasm 06/29/23 10/22/24 10/23/24 History tramadol 50 mg tablet 50 mg PO Q6H PRN Pain (Scale Score 06/29/23 10/22/24 10/23/24 History 1-3) rivaroxaban 20 mg tablet 20 mg PO DAILY 07/23/23 10/22/24 10/23/24 History amlodipine 5 mg tablet 5 mg PO DAILY #90 tabs 12/13/23 10/22/24 10/24/24 08:00 Rx clopidogrel 75 mg tablet 75 mg PO DAILY #90 tabs 08/25/24 10/22/24 10/24/24 08:00 Rx amiodarone 200 mg tablet 400 mg (2 x 200 mg) PO DAILY #90 10/13/24 10/22/24 10/24/24 08:00 Rx tabs furosemide 20 mg tablet 20 mg PO DAILY PRN swelling in 10/17/24 10/22/24 10/23/24 Rx legs #14 tabs Allergies Allergy/AdvReac Type Severity Reaction Status Date / Time cyanocobalamin (vitamin B12) Allergy ALGY-Swell Verified 10/09/24 09:01 Lip/Tongue/Throat atorvastatin [From Lipitor] AdvReac ADR-Cramping Verified 10/09/24 09:01 of the Muscles cephalexin [From Keflex] AdvReac ADR-Vomitin Verified 10/09/24 09:01 g clindamycin AdvReac ADR-Gastrointestinal Verified 10/09/24 09:01 Upset pantoprazole [From Protonix] AdvReac Unknown Verified 10/09/24 09:01 [facility] Anesthesia Medical History BPH loc w urin obs/LUTS Urethral stricture Penile pain Bilateral kidney stones Coronary artery disease Hematuria Resolved after stopping IV anticoagulation and IV antiplatelets Aftercare following knee joint replacement surgery Surgical History S/P ureteral stent placement Hx of neck surgery Hx of total knee replacement Hx of arthroscopic knee surgery History of ankle surgery Hx of foot surgery Family History Father , at age 56 CAD (coronary artery disease) Mother CAD (coronary artery disease) Grandfather CAD (coronary artery disease) Grandmother CAD (coronary artery disease) Cancer Denies family history of Diabetes Clotting disorder Dementia Chronic kidney disease (CKD) Suicide Anesthesia complication Bleeding disorder Lung disease Stroke Social History Smoking and tobacco/nicotine status: never used tobacco/nicotine Alcohol intake: former Marital status: Current occupational status: retired Data Anesthesia Cardiac Studies: Echocardiogram Ultrasound 12/28/20 Sestamibi Stress Test (Cardiology) 08/19/24
--- NOTE | 2024-10-24 11:23 | USCV_ITS ---
TiffanieFidel Age: 69 Gender: M : 1955 Exam Date: 10/24/2024 12:02 Ordering Phys: Katerina Torres Technologist: Ronal Muro Exam Location: [facility] [place] Indication: afib BP: / HR: Rhythm: Sinus Technical Quality: Adequate MEASUREMENTS (Male / Female) Normal Values Medications Per anesthesia team Complications None Proc. Components After anesthesia team sedated patient, we proceeded with advancing CHRISTINA probe. FINDINGS Left Ventricle Left ventricle is normal size. LV systolic function is normal with EF of 55 to 60%. Right Ventricle Normal in size and function Right Atrium Normal in size Left Atrium Grossly normal LA Appendage No left atrial appendage thrombus IA Septum Grossly normal Mitral Valve Structurally normal mitral valve. Mild mitral regurgitation. Aortic Valve Aortic valve is thickened. Tricuspid Valve Structurally normal. Pulmonic Valve Grossly normal Pericardium Normal Aorta CONCLUSIONS LV systolic function is normal with EF of 55 to 60%. No left atrial appendage thrombus Mild mitral regurgitation Jose R Iraheta MD (Electronically Signed) Final Date: 25 October 2024 18:54 S
--- NOTE | 2024-10-24 11:29 | ECG_ITS ---
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 Measurements Intervals [place] Rate: 80 P: 0 UT: 0 QRS: -9 QRSD: 105 T: 100 QT: 413 QTc: 477 Interpretive Statements ATRIAL FIBRILLATION NONSPECIFIC T-WAVE ABNORMALITY Compared to ECG 10/09/2024 08:55:24 No significant changes Electronically Signed On 10-24-2024 19:55:35 AREA REPRESENTATIVE by Abigail Kemp M.D. [id number]
[2024-10-24] MEDS: sodium chloride 0.9% 500 ML 15 ML IV (11:42)
--- NOTE | 2024-10-24 11:57 | W.PM.OPSUD ---
Surgery/Procedure H&P Update DATE OF PROCEDURE: October 24, 2024 DATE H&P PERFORMED: 10/09/24 H&P UPDATE INFORMATION: I have reviewed H&P completed within last 30 days, I have examined patient prior to procedure and No changes to prior documentation PREOP DIAGNOSIS: Atrial fibrillation PRIMARY INDICATION FOR PROCEDURE: Atrial fibrillation PLANNED PROCEDURE: Operation Date: 10/24/24 12:00 Proposed Procedures p CHRISTINA(Not Applicable) - Jose R Iraheta M.D s Cardioversion(Not Applicable) - Jose R Iraheta M.D Anesthesia team available for sedation
--- NOTE | 2024-10-24 12:29 | P.PCN_ITS ---
Procedure Note: Date of procedure: 10/24/24 Pre-procedure diagnosis: Atrial fibrillation Post-procedure diagnosis: other (Normal sinus rhythm) Procedure: After anesthesia team sedated patient, we proceeded with advancing CHRISTINA probe. Left atrial appendage thrombus was ruled out on CHRISTINA. We then proceeded with DCCV cardioversion at 200J. First shock did not convert him to NSR. We proceeded with second second shock at 200J that converted him successfully to normal sinus rhythm. Performing Provider: Jose R Iraheta Complications: None Condition: stable Disposition: same day (Discharge home) Coding Level of Care Code Acute Code for [facility] Last
--- NOTE | 2024-10-24 12:34 | SUR.OPER ---
2 shocks at 200 J administered
--- NOTE | 2024-10-24 13:00 | ECG_ITS ---
[facility] [employer] Test Date: 2024-10-24 Pat Name: Fidel Moreno Department: Room: Gender: Male Solution Designer: : 1955 Requested By: Jose R Iraheta Order Number: [id number] Gloria MD: Abigail Kemp M.D. Measurements Intervals [place] Rate: 58 P: 52 ND: 223 QRS: -18 QRSD: 100 T: -2 QT: 434 QTc: 429 Interpretive Statements SINUS BRADYCARDIA WITH FIRST DEGREE AV BLOCK NONSPECIFIC T-WAVE ABNORMALITY Compared to ECG 10/24/2024 11:29:22 First degree AV block now present Atrial fibrillation no longer present T-wave abnormality still present Electronically Signed On 10-24-2024 19:55:40 RETAIL OPERATIONS SPECIALIST by Abigail Kemp M.D. [id number]
== END 2024-10-24 13:25 | disposition home or self-care (01) ==
PROVIDERS: PCP Family Medicine; Visit Provider Internal Medicine
PROC: (CPT 93312; principal; 2024-10-24 12:00)
PROC: 5A2204Z Restoration of Cardiac Rhythm, Single (ICD-10-PCS; 2024-10-24 12:00)
DX: I48.91 Unspecified atrial fibrillation (principal); I25.10 Atherosclerotic heart disease of native coronary artery without angina pectoris; I25.2 Old myocardial infarction; Z99.89 Dependence on other enabling machines and devices; Z98.890 Other specified postprocedural states; N40.1 Benign prostatic hyperplasia with lower urinary tract symptoms; N13.8 Other obstructive and reflux uropathy
CPT/HCPCS: 92960; 93005; 93312; 93320; 93325; J2704; J7040

== ENCOUNTER → 2024-11-06 15:40 | Outpatient (BNVA) | payer OTHER, SELFPAY | PROVIDERS: PCP Family Medicine; Visit Provider Nurse Practitioner Family | DX: I48.91 Unspecified atrial fibrillation (principal); R60.9 Edema, unspecified; I10 Essential (primary) hypertension | CPT/HCPCS: 93005; 93010; 99214 ==

== ENCOUNTER → 2025-02-24 10:35 | Outpatient (BNVA) | payer OTHER, SELFPAY | PROVIDERS: PCP Family Medicine; Visit Provider Internal Medicine | DX: I25.10 Atherosclerotic heart disease of native coronary artery without angina pectoris (principal); R06.09 Other forms of dyspnea; I10 Essential (primary) hypertension; E78.5 Hyperlipidemia, unspecified; I48.91 Unspecified atrial fibrillation; E11.9 Type 2 diabetes mellitus without complications; Z79.01 Long term (current) use of anticoagulants; Z87.891 Personal history of nicotine dependence; I25.2 Old myocardial infarction | CPT/HCPCS: 99214 ==

== ENCOUNTER 2025-03-06 06:21 | Outpatient (CLI) | payer OTHER, SELFPAY ==
--- NOTE | 2025-03-06 06:30 | USCV_ITS ---
Fidel Moreno Age: 69 Gender: M : 1955 Exam Date: 03/06/2025 06:32 Ordering Phys: Jose R Iraheta M.D ([email or web address]) Technologist: KARELY Exam Location: [facility] [place] Indication: CP, Sob BP: 120 / 68 HR: 58 Rhythm: Sinus Technical Quality: Adequate MEASUREMENTS (Male / Female) Normal Values 2D ECHO LV Diastolic Diameter PLAX 5.8 cm 4.2 - 5.9 / 3.9 - 5.3 cm IVS Diastolic Thickness 1.0 cm 0.6 - 1.0 / 0.6 - 0.9 cm IVS Systolic Thickness 1.8 cm LVPW Diastolic Thickness 1.1 cm 0.6 - 1.0 / 0.6 - 0.9 cm LVPW Systolic Thickness 1.7 cm LVOT Diameter 2.0 cm LV Ejection Fraction 2D Teich 60.4 % LV Ejection Fraction MOD 4C 58.1 % LV Ejection Fraction MOD 2C 66.4 % LV Ejection Fraction 2C AL 66.1 % LA Diameter 4.3 cm RA Systolic Volume 4C AL 53.5 ml RA Systolic Volume 4C MOD 52.2 ml LA Sys Volume AL 77.1 cm cubed LA Sys Volume Index AL 30.0 cm cubed/m squared Aorta at Sinotubular Diameter 3.0 cm IVC Diameter 2.0 cm M-MODE LA Ao Ratio MM 1.7 AV Cusp Separation MM 1.5 cm DOPPLER AV Peak Velocity 164.0 cm/s LVOT Peak Velocity 114.0 cm/s AV Area Cont Eq vti 2.3 cm squared AV Area Cont Eq pk 2.1 cm squared MV Peak Velocity 102.0 cm/s MV Area PHT 5.7 cm squared Mitral E to A Ratio 1.2 TR Peak Velocity 119.0 cm/s TR Peak Gradient 5.7 mmHg TV Peak E Velocity 76.0 cm/s PV Peak Velocity 111.0 cm/s FINDINGS Left Ventricle Left ventricle is normal in size. LV systolic function is normal with EF of 60-65%. No regional wall motion abnormalities. Right Ventricle Normal in size and function Right Atrium Normal in size Left Atrium Left atrial dilation Mitral Valve Structurally normal mitral valve. Mild mitral regurgitation. Aortic Valve Structurally normal aortic valve. No significant stenosis or regurgitation. Tricuspid Valve Insufficient TR jet to calculate RVSP Pulmonic Valve Not well visualized Pericardium Normal Aorta Normal in size IVC Appears to be normal CONCLUSIONS LV systolic function is normal with EF of 60-65% Mild mitral regurgitation Left atrial dilation Jose R Iraheta MD (Electronically Signed) Final Date: 12 Mar 2025 09:35 S
[2025-03-06 07:14] VITALS: BMI 37.4
--- NOTE | 2025-03-06 07:21 | ECG_ITS ---
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 The perfusion scan will be documented separately. DATA: Baseline heart rate was 56 beats per minute. Baseline blood pressure was 152/86 millimeters of mercury. Target heart rate was 153. Maximum heart rate achieved was 74. which was 48% of the predicted target heart rate. Maximum blood pressure was 152/86 millimeters of mercury. The reason for ending the test was completion of the protocol. The patient did not experience any symptoms. ELECTROCARDIOGRAM: BASELINE: Sinus bradycardia. Normal axis. Otherwise, no ST-T changes suggestive of ischemia noted. No arrhythmia noted. EXERCISE: After Lexiscan injection, no ST-T changes suggestive of ischemic noted. No arrhythmia noted. CONCLUSION: Please note due to baseline abnormality of the EKG specificity and sensitivity of the EKG portion of LexiScan MIBI stress test will be low 1. EKG not suggestive of ischemia 2. Lexiscan injection unremarkable. 3. Perfusion scan will be documented separately. Electronically Signed On 03-15-2025 19:32:22 CDT by ANDREW ZHU [email or web address] [email or web address]
--- NOTE | 2025-03-06 07:21 | NMCV_ITS ---
NM leila perf SPECT r/s* [id number] Fidel Moreno Age: 69 Gender: M : 1955 Exam Date: 03/06/2025 07:52 Ordering Phys: Jose R Iraheta M.D ([email or web address]) Technologist: CASSIUS Fletcher Exam Location: [facility] Indications: cp STRESS TEST Please see separate stress test report in [facility] for full findings IMAGE PROTOCOL Rest/Stress 1 Lexiscan Day Radiopharmaceutical Dose (mCi) Administration Site Administered by Rest: Tc-99m 10.8 IV JENNIFER FletcherMT Sestamibi Stress:Tc-99m 33 IV Ju Richey, GRINDER SET UP OPERATOR JIG Sestamibi Rest: 06-Mar-2025 60 Discovery 630 Stress: 06-Mar-2025 30 Discovery 630 0.4mg Lexiscan. Images obtained in supine and prone position. SPECT RESULTS Technical Quality: Good Raw Data Analysis: Normal Image Corrections: No attenuation or motion correction applied Summed Stress Score: 3 Summed Rest Score: 6 Summed Difference Score: 0 PERFUSION FINDINGS Medium sized area of fixed perfusion defect noted in basal to distal inferior and inferolateral wall suggestive of old myocardial infarction versus scarring with minimal leon-infarct ischemia FUNCTIONAL RESULTS (calculated via Gated SPECT) Stress Image LV EF (%): 49 Stress EDV (mL):171 TID: 1.05 Stress ESV (mL):88 FUNCTIONAL FINDINGS: Inferior wall hypokinesis IMPRESSIONS Medium sized area of fixed perfusion defect noted in basal to distal inferior and inferolateral wall suggestive of old myocardial infarction versus scarring with minimal leon-infarct ischemia Bebe Novoa MD (Electronically Signed) Final Date: 10 Mar 2025 13:18 S
[2025-03-06] MEDS: regadenoson 0.4 Mg/5 ml Syringe IVP (08:22)
[2025-03-06 08:36] VITALS: BP 136/77; PULSE 66
== END 2025-03-06 06:22 | disposition home or self-care (01) ==
PROVIDERS: PCP Family Medicine; Visit Provider Internal Medicine
DX: R07.9 Chest pain, unspecified (principal); R06.02 Shortness of breath; R93.1 Abnormal findings on diagnostic imaging of heart and coronary circulation; I51.7 Cardiomegaly; I34.0 Nonrheumatic mitral (valve) insufficiency
CPT/HCPCS: 36415; 78452; 93017; 93306; 96374; A9500; J2785

== ENCOUNTER → 2025-03-19 12:34 | Outpatient (BNVA) | payer OTHER, SELFPAY | PROVIDERS: PCP Family Medicine; Visit Provider Internal Medicine | DX: I25.119 Atherosclerotic heart disease of native coronary artery with unspecified angina pectoris (principal); E11.9 Type 2 diabetes mellitus without complications; I10 Essential (primary) hypertension; I25.2 Old myocardial infarction; E78.5 Hyperlipidemia, unspecified; I48.91 Unspecified atrial fibrillation; Z79.01 Long term (current) use of anticoagulants | CPT/HCPCS: 99213 ==

== ENCOUNTER 2025-05-12 12:26 | Outpatient (RCR) | payer OTHER, SELFPAY | END 2025-06-04 23:59 | disposition home or self-care (01) | LOC: CR 12:26 | PROVIDERS: PCP Family Medicine; Visit Provider Family Medicine | DX: I25.2 Old myocardial infarction (principal) | CPT/HCPCS: 93798 ==

== ENCOUNTER 2025-06-05 12:25 | Outpatient (RCR) | payer OTHER, SELFPAY | END 2025-07-05 23:59 | disposition home or self-care (01) | LOC: CR 12:25 | PROVIDERS: PCP Family Medicine; Visit Provider Family Medicine | DX: I25.2 Old myocardial infarction (principal) | CPT/HCPCS: 93798 ==

== ENCOUNTER 2025-07-07 08:28 | Outpatient (RCR) | payer OTHER, SELFPAY | END 2025-08-04 23:59 | disposition home or self-care (01) | LOC: CR 08:28 | PROVIDERS: PCP Family Medicine; Visit Provider Family Medicine | DX: I25.2 Old myocardial infarction (principal) | CPT/HCPCS: 93798 ==

== ENCOUNTER → 2025-07-14 14:50 | Outpatient (BNVA) | payer OTHER, SELFPAY | PROVIDERS: PCP Family Medicine; Visit Provider Internal Medicine | DX: R06.09 Other forms of dyspnea (principal); G47.33 Obstructive sleep apnea (adult) (pediatric); D68.51 Activated protein C resistance; F41.9 Anxiety disorder, unspecified; Z86.711 Personal history of pulmonary embolism; Z79.01 Long term (current) use of anticoagulants; Z87.891 Personal history of nicotine dependence; R06.00 Dyspnea, unspecified; J44.9 Chronic obstructive pulmonary disease, unspecified | CPT/HCPCS: 99204 ==

== ENCOUNTER 2025-07-17 07:41 | Outpatient (CLI) | payer OTHER, SELFPAY ==
--- NOTE | 2025-07-17 07:48 | XRR_ITS ---
PROCEDURE INFORMATION: Exam: XR Chest Exam date and time: 07/17/2025 8:30 AM Age: 70 years old Clinical indication: Dyspnea; Additional info: R06.00 - dyspnea, unspecified TECHNIQUE: Imaging protocol: Radiologic exam of the chest. Views: 2 views. COMPARISON: 1. CT angio chest PE protcl [id number] 08/15/2024 12:26 PM 2. CR XR chest 1V [id number] 02/17/2024 10:49 AM FINDINGS: Lungs: Unremarkable. No consolidation. Pleural spaces: Unremarkable. No pleural effusion. No pneumothorax. Heart/Mediastinum: Unremarkable. No cardiomegaly. Bones/joints: Has been previous internal fixation of the cervical spine. XR/XR chest 2V* [id number] IMPRESSION: No acute findings.
--- NOTE | 2025-07-17 09:00 | NM_ITS ---
WS: [id number] NUCLEAR MEDICINE LUNG VENTILATION AND PERFUSION CLINICAL INFORMATION: chronic dyspnea TECHNIQUE: Ventilation/perfusion lung scan with 32.8 mCi technetium 99m DTPA and 5.4 mCi Tc 99m MAA. COMPARISON: Chest radiograph 07/17/2025 FINDINGS: Hyperinflation. Cardiomegaly. Chronic emphysematous change. Patchy deposition of radiotracer along the central bronchi on the ventilatory images. Relatively homogeneous perfusion imaging. No mismatched or lobar ventilation/perfusion defects to indicate pulmonary embolus. Low probability for pulmonary embolus. NM/NM pul vent and perfus* [id number] IMPRESSION: 1. Low probability for pulmonary embolus.
== END 2025-07-17 07:42 | disposition home or self-care (01) ==
LOC: RAD 07:42
PROVIDERS: PCP Family Medicine; Visit Provider Internal Medicine
DX: R06.09 Other forms of dyspnea (principal); R06.00 Dyspnea, unspecified
CPT/HCPCS: 71046; 78014; A9540; A9567

== ENCOUNTER 2025-08-04 13:09 | Outpatient (CLI) | payer OTHER, SELFPAY | END 2025-08-04 13:10 | disposition home or self-care (01) | PROVIDERS: PCP Family Medicine; Visit Provider Internal Medicine | DX: J44.9 Chronic obstructive pulmonary disease, unspecified (principal) | CPT/HCPCS: 94010; 94726; 94729 ==

== ENCOUNTER 2025-08-10 20:04 | Outpatient (CLI) | payer OTHER, SELFPAY | END 2025-08-10 20:05 | disposition home or self-care (01) | LOC: SLEEP 20:05 | PROVIDERS: PCP Family Medicine; Referring Provider Family Medicine; Visit Provider Internal Medicine Pulmonary Disease | DX: G47.33 Obstructive sleep apnea (adult) (pediatric) (principal) | CPT/HCPCS: 95811 ==

== ENCOUNTER → 2025-09-11 09:49 | Outpatient (BNVA) | payer OTHER, SELFPAY | PROVIDERS: PCP Family Medicine; Visit Provider Internal Medicine | DX: G47.33 Obstructive sleep apnea (adult) (pediatric) (principal); J44.9 Chronic obstructive pulmonary disease, unspecified; I82.409 Acute embolism and thrombosis of unspecified deep veins of unspecified lower extremity; D68.51 Activated protein C resistance; F41.9 Anxiety disorder, unspecified; Z79.01 Long term (current) use of anticoagulants; Z86.711 Personal history of pulmonary embolism; Z87.891 Personal history of nicotine dependence | CPT/HCPCS: 99214; Q3014 ==